=== PATIENT | male | born 1980 ===

== ENCOUNTER 2020-11-05 08:29 | Outpatient (REF) | payer BC, SELFPAY ==
--- NOTE | 2020-11-05 08:59 | XR_ITS ---
EXAMINATION: XR BILATERAL HAND, BILATERAL SHOULDER, CERVICAL SPINE, AND ABDOMEN CLINICAL INFORMATION: Pain. COMPARISON: None. TECHNIQUE: 3 views each hand, 4 views each shoulder, 2 views cervical spine and 2 views abdomen. FINDINGS: Right Hand: There is no visible acute fracture, dislocation or subluxation. The joint space is maintained. The soft tissues are normal. Left Hand: There is no visible acute fracture, dislocation or subluxation. The joint spaces are maintained. The soft tissues are normal. Left Shoulder: There is no visible acute fracture, dislocation or subluxation seen. 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 Right Shoulder: No visible acute fracture, dislocation or subluxation seen. There is mild deformity of the acromion at the AC joint, 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. Abdomen: There is scattered stool seen throughout the right colon. The bowel gas pattern is nonspecific. There is no organomegaly. No radiopaque calculi seen. There are phleboliths in the right pelvis. No gross bony abnormality. Cervical Spine: There is mild straightening of cervical lordosis. The vertebral heights and alignment are normal. There is mild loss of C4-C5, C5-C6, C6-C7 disc heights with ventral spondylosis. No lytic or sclerotic process seen. The prevertebral soft tissues are normal. XR/XR hand RT min 3V IMPRESSION: Unremarkable bilateral hand exam. Mild deformity of bilateral acromion processes at the AC joints, likely normal variation. Otherwise, both shoulders are unremarkable. Unremarkable abdomen with mild constipation. Straightening of cervical lordosis, probably from spasm. There are degenerative disc changes C4-C5 through C6-C7 disc levels with moderate ventral spondylosis. No lytic or sclerotic process seen.
--- NOTE | 2020-11-05 08:59 | XR_ITS ---
EXAMINATION: XR BILATERAL HAND, BILATERAL SHOULDER, CERVICAL SPINE, AND ABDOMEN CLINICAL INFORMATION: Pain. COMPARISON: None. TECHNIQUE: 3 views each hand, 4 views each shoulder, 2 views cervical spine and 2 views abdomen. FINDINGS: Right Hand: There is no visible acute fracture, dislocation or subluxation. The joint space is maintained. The soft tissues are normal. Left Hand: There is no visible acute fracture, dislocation or subluxation. The joint spaces are maintained. The soft tissues are normal. Left Shoulder: There is no visible acute fracture, dislocation or subluxation seen. 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 Right Shoulder: No visible acute fracture, dislocation or subluxation seen. There is mild deformity of the acromion at the AC joint, 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. Abdomen: There is scattered stool seen throughout the right colon. The bowel gas pattern is nonspecific. There is no organomegaly. No radiopaque calculi seen. There are phleboliths in the right pelvis. No gross bony abnormality. Cervical Spine: There is mild straightening of cervical lordosis. The vertebral heights and alignment are normal. There is mild loss of C4-C5, C5-C6, C6-C7 disc heights with ventral spondylosis. No lytic or sclerotic process seen. The prevertebral soft tissues are normal. XR/XR shoulder RT min 2V IMPRESSION: Unremarkable bilateral hand exam. Mild deformity of bilateral acromion processes at the AC joints, likely normal variation. Otherwise, both shoulders are unremarkable. Unremarkable abdomen with mild constipation. Straightening of cervical lordosis, probably from spasm. There are degenerative disc changes C4-C5 through C6-C7 disc levels with moderate ventral spondylosis. No lytic or sclerotic process seen.
--- NOTE | 2020-11-05 08:59 | XR_ITS ---
EXAMINATION: XR BILATERAL HAND, BILATERAL SHOULDER, CERVICAL SPINE, AND ABDOMEN CLINICAL INFORMATION: Pain. COMPARISON: None. TECHNIQUE: 3 views each hand, 4 views each shoulder, 2 views cervical spine and 2 views abdomen. FINDINGS: Right Hand: There is no visible acute fracture, dislocation or subluxation. The joint space is maintained. The soft tissues are normal. Left Hand: There is no visible acute fracture, dislocation or subluxation. The joint spaces are maintained. The soft tissues are normal. Left Shoulder: There is no visible acute fracture, dislocation or subluxation seen. 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 Right Shoulder: No visible acute fracture, dislocation or subluxation seen. There is mild deformity of the acromion at the AC joint, 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. Abdomen: There is scattered stool seen throughout the right colon. The bowel gas pattern is nonspecific. There is no organomegaly. No radiopaque calculi seen. There are phleboliths in the right pelvis. No gross bony abnormality. Cervical Spine: There is mild straightening of cervical lordosis. The vertebral heights and alignment are normal. There is mild loss of C4-C5, C5-C6, C6-C7 disc heights with ventral spondylosis. No lytic or sclerotic process seen. The prevertebral soft tissues are normal. XR/XR abdomen w decubitus IMPRESSION: Unremarkable bilateral hand exam. Mild deformity of bilateral acromion processes at the AC joints, likely normal variation. Otherwise, both shoulders are unremarkable. Unremarkable abdomen with mild constipation. Straightening of cervical lordosis, probably from spasm. There are degenerative disc changes C4-C5 through C6-C7 disc levels with moderate ventral spondylosis. No lytic or sclerotic process seen.
[2020-11-05 09:02] LABS: MANUAL DIFF FLAG NO
[2020-11-05 09:06] LABS: Basophils Percent Auto 0.4 % (0-2); Eosinophils Percent Auto 0.5 % (0-4); Hematocrit 45.1 % (42-52); Hemoglobin 14.9 g/dl (14.0-18.0); Imm Gran Abs Auto 0.02 X10*3/uL (0.00-0.03); Imm Gran Pct Auto 0.3 % (0.0-0.4); Lymphocytes Absolute Auto 1.8 X10*3/uL (1.2-4.9); Lymphocytes Percent Auto 25.1 % (20-40); Mean Corpuscular Hemoglobin 29.1 pg (27.0-33.0); Mean Corpuscular Volume 88.1 fL (80-98); Mean Platelet Volume 9.4 fL (9.4-12.4); Monocytes Absolute Auto 0.7 X10*3/uL (0.1-1.2); Neutrophils Absolute Auto 4.6 X10*3/uL (2.0-8.3); Neutrophils Percent Auto 63.7 % (45-73); Platelet Count 214 X10*3/uL (160-400); Red Blood Count 5.12 X10*6/uL (4.60-5.80); Red Cell Distribution Width 12.7 % (11.0-16.0); White Blood Count 7.3 X10*3/uL (4.8-10.8)
[2020-11-05 09:36] LABS: Glucose Urine UA NEG (NEG); Leukocyte Esterase Urine NEG (NEG); Nitrite Urine NEG (NEG); Specific Gravity - Urine >= 1.030 (1.005-1.025); Urine Blood 1+ (NEG); Urine Ketones 15 MG/DL (NEG); Urine Protein NEG (NEG-TRACE)
[2020-11-05 09:37] LABS: Appearance Urine CLEAR; Color Urine YELLOW
[2020-11-05 10:14] LABS: Erythrocyte Sedimentation Rate 1 MM/HR (0-15)
[2020-11-05 10:34] LABS: RBC Urine 0-2 /HPF (0); WBC Urine 0 /HPF (0-4)
[2020-11-05 11:00] LABS: Alanine Aminotransferase 20 U/L (0-40); Albumin Level 4.8 g/dL (3.5-5.0); Alkaline Phosphatase 76 U/L (39-117); Anion Gap 14 (12-20); Aspartate Amino Transferase 22 U/L (5-37); Bilirubin Total 1.3 mg/dL (0.0-1.0); Blood Urea Nitrogen 14 mg/dL (9-16); C Reactive Protein 0.06 mg/dL (< or = 0.50); Calcium 9.5 mg/dL (8.4-10.2); Carbon Dioxide 28 mmol/L (22-29); Chloride 104 mmol/L (96-108); Cholesterol 173 mg/dL; Estimated Glomerular Filt Rate > 60; Glucose Fasting 89 mg/dL (60-99); HDL Cholesterol 61 mg/dL; LDL Cholesterol Calculated 102 mg/dl; Potassium 4.8 mmol/l (3.3-5.1); Rheumatoid Factor < 15.0 IU/mL (<15.0); Sodium 141 mmol/L (135-145); Total Protein 7.6 g/dL (6.5-8.0); Triglycerides 50 mg/dL
[2020-11-05 11:21] LABS: TSH reflex Free T4 0.75 mIU/mL (0.32-4.0)
== END 2020-11-05 08:30 | disposition home or self-care (01) ==
LOC: HO.LAB 08:29
PROVIDERS: PCP Internal Medicine; Visit Provider Internal Medicine
DX: Z00.00 Encounter for general adult medical examination without abnormal findings (principal); I10 Essential (primary) hypertension; R10.9 Unspecified abdominal pain; R14.0 Abdominal distension (gaseous); E66.3 Overweight; M79.7 Fibromyalgia; E78.00 Pure hypercholesterolemia, unspecified; M79.642 Pain in left hand; M79.641 Pain in right hand; M25.512 Pain in left shoulder; M25.511 Pain in right shoulder; M54.2 Cervicalgia
CPT/HCPCS: 36415; 72040; 73030; 73130; 74021; 80053; 80061; 81001; 81003; 84443; 85025; 85652; 86140; 86431

== ENCOUNTER 2021-08-08 09:33 | Outpatient (REF) | payer BC, SELFPAY ==
[2021-08-08 10:03] LABS: Basophils Percent Auto 0.3 % (0-2); Eosinophils Percent Auto 0.4 % (0-4); Hematocrit 41.6 % (42-52); Hemoglobin 13.9 g/dl (14.0-18.0); Imm Gran Abs Auto 0.02 X10*3/uL (0.00-0.03); Imm Gran Pct Auto 0.3 % (0.0-0.4); Lymphocytes Absolute Auto 1.6 X10*3/uL (1.2-4.9); Lymphocytes Percent Auto 21.5 % (20-40); MANUAL DIFF FLAG NO; Mean Corpuscular HGB Conc 33.4 g/dl (31.0-36.0); Mean Corpuscular Volume 89.7 fL (80-98); Mean Platelet Volume 9.4 fL (9.4-12.4); Monocytes Absolute Auto 0.7 X10*3/uL (0.1-1.2); Monocytes Percent Auto 8.8 % (2-11); Neutrophils Absolute Auto 5.2 X10*3/uL (2.0-8.3); Neutrophils Percent Auto 68.7 % (45-73); Platelet Count 194 X10*3/uL (160-400); Red Blood Count 4.64 X10*6/uL (4.60-5.80); Red Cell Distribution Width 13.9 % (11.0-16.0); White Blood Count 7.6 X10*3/uL (4.8-10.8)
[2021-08-08 11:04] LABS: Alanine Aminotransferase 16 U/L (0-40); Albumin Level 4.3 g/dL (3.5-5.0); Alkaline Phosphatase 58 U/L (39-117); Anion Gap 10 (12-20); Aspartate Amino Transferase 19 U/L (5-37); Bilirubin Total 0.4 mg/dL (0.0-1.0); Blood Urea Nitrogen 21 mg/dL (9-16); Calcium 9.7 mg/dL (8.4-10.2); Carbon Dioxide 26 mmol/L (22-29); Chloride 106 mmol/L (96-108); Estimated Glomerular Filt Rate > 60; Glucose Random 83 mg/dL (60-115); Potassium 4.2 mmol/L (3.3-5.1); Sodium 138 mmol/L (135-145); Total Protein 6.8 g/dL (6.5-8.0)
== END 2021-08-08 09:34 | disposition home or self-care (01) ==
LOC: HO.LAB 09:33
PROVIDERS: PCP Internal Medicine; Visit Provider Nurse Practitioner Family
DX: K92.1 Melena (principal)
CPT/HCPCS: 36415; 80053; 85025

== ENCOUNTER 2021-11-08 09:50 | Outpatient (REF) | payer BC, SELFPAY ==
--- NOTE | ~2021-11-08 | XR_ITS ---
EXAMINATION: XR LUMBOSACRAL SPINE CLINICAL INFORMATION: Chronic low back pain COMPARISON: [facility] 11/05/2020 and lumbar spine x-rays 10/27/2013 TECHNIQUE: Three views of the lumbosacral spine. FINDINGS: Similar appearance of 4 nonrib-bearing lumbar style vertebral bodies with the lower most right rib being diminutive. There is normal alignment of the lumbar spine. Lumbar vertebral body heights are maintained. There is moderate narrowing of the lower most lumbar disc space height. Minimal degenerative changes of the posterior elements of the lower lumbar spine. Sacroiliac joints appear symmetric. Punctate pelvic calcifications are likely vascular in nature. XR/XR lumbar spine 2-3V IMPRESSION: -Mild to moderate degenerative changes of the lower lumbar spine without compression deformity. -If intervention is planned, complete imaging of the spine is recommended for accurate vertebral body numbering.
[2021-11-08 10:16] LABS: MANUAL DIFF FLAG NO
[2021-11-08 10:30] LABS: Basophils Percent Auto 0.1 % (0-2); Eosinophils Percent Auto 0.3 % (0-4); Hematocrit 43.3 % (42.0-52.0); Hemoglobin 14.3 g/dl (14.0-18.0); Imm Gran Abs Auto 0.01 X10*3/uL (0.00-0.03); Imm Gran Pct Auto 0.1 % (0.0-0.4); Lymphocytes Absolute Auto 1.7 X10*3/uL (1.2-4.9); Lymphocytes Percent Auto 24.8 % (20-40); Mean Corpuscular Hemoglobin 29.7 pg (27.0-33.0); Mean Platelet Volume 9.4 fL (9.4-12.4); Monocytes Absolute Auto 0.6 X10*3/uL (0.1-1.2); Neutrophils Absolute Auto 4.6 x10*3/uL (2.0-8.3); Neutrophils Percent Auto 65.7 % (45-73); Platelet Count 216 X10*3/uL (160-400); Red Blood Count 4.81 X10*6/uL (4.60-5.80); Red Cell Distribution Width 13.2 % (11.0-16.0)
[2021-11-08 10:59] LABS: Appearance Urine CLEAR; Color Urine YELLOW; Glucose Urine UA NEG (NEG); Leukocyte Esterase Urine NEG (NEG); Nitrite Urine NEG (NEG); UACC Culture Trigger NO; Urine Blood 1+ (NEG); Urine Ketones NEG (NEG); Urine Protein NEG (NEG-TRACE)
[2021-11-08 11:07] LABS: Erythrocyte Sedimentation Rate 1 MM/HR (0-15)
[2021-11-08 11:16] LABS: WBC Urine 0 /HPF (0-4)
[2021-11-08 11:17] LABS: Amorphous Sediment Urine TRACE /LPF; RBC Urine 0 /HPF (0)
[2021-11-08 11:46] LABS: Alanine Aminotransferase 37 U/L (0-40); Albumin Level 4.5 g/dL (3.5-5.0); Alkaline Phosphatase 65 U/L (39-117); Anion Gap 12 (12-20); Aspartate Amino Transferase 28 U/L (5-37); Bilirubin Total 0.5 mg/dL (0.0-1.0); Blood Urea Nitrogen 22 mg/dL (9-16); C Reactive Protein 0.03 mg/dL (< or = 0.50); Calcium 9.7 mg/dL (8.4-10.2); Carbon Dioxide 25 mmol/L (22-29); Chloride 105 mmol/L (96-108); Cholesterol 196 mg/dL; Estimated Glomerular Filt Rate > 60; Glucose Fasting 84 mg/dL (60-99); HDL Cholesterol 63 mg/dL; LDL Cholesterol Calculated 122 mg/dl; Potassium 4.1 mmol/L (3.3-5.1); Sodium 138 mmol/L (135-145); Total Protein 7.5 g/dL (6.5-8.0); Triglycerides 58 mg/dL
[2021-11-08 11:51] LABS: TSH reflex Free T4 0.87 uIU/mL (0.32-4.0); Vitamin D 25-OH Total 24.1 ng/mL (>30)
== END 2021-11-08 09:51 | disposition home or self-care (01) ==
LOC: HO.XRAY 09:50
PROVIDERS: PCP Internal Medicine; Visit Provider Internal Medicine
DX: Z00.00 Encounter for general adult medical examination without abnormal findings (principal); E55.9 Vitamin D deficiency, unspecified; M25.511 Pain in right shoulder; M25.512 Pain in left shoulder; M54.50 Low back pain, unspecified
CPT/HCPCS: 36415; 72100; 80053; 80061; 81001; 81003; 82306; 84443; 85025; 85652; 86140

== ENCOUNTER 2021-11-24 11:52 | Outpatient (REF) | payer BC, SELFPAY ==
[2021-11-24 13:53] LABS: Syphilis Screen Nonreactive (Nonreactive)
[2021-11-24 14:12] LABS: Prostate Specific Antigen Scr 0.32 ng/mL (<0.05-4.0)
[2021-11-24 14:45] LABS: Appearance Urine CLEAR; Color Urine YELLOW; Glucose Urine UA NEG (NEG); Leukocyte Esterase Urine NEG (NEG); Nitrite Urine NEG (NEG); Urine Blood 1+ (NEG); Urine Ketones NEG (NEG); Urine Protein NEG (NEG-TRACE)
[2021-11-24 15:02] LABS: WBC Urine 0 /HPF (0-4)
[2021-11-24 15:16] LABS: Creatinine Urine 84.25 mg/dL; Microalbumin Urine < 5.0 mg/L
[2021-11-27 04:23] LABS: HBS Num1 230.47 mIU/mL (0-7.99); HBc Num1 0.06 S/CO (0.00-0.79); HIV AB/AG Nonreactive (Nonreactive); HIV Num 1 0.13 S/CO (0.00-0.99); Hepatitis B Core Antibody Nonreactive (Nonreactive); ~Hepatitis B Surface Antibody REACTIVE (Nonreactive)
[2021-11-27 04:41] LABS: Hepatitis B Surface Antigen Negative (Negative)
[2021-11-27 05:16] LABS: HBsAGNum1 0.18 S/CO (0.00-0.99); ~HepC Num1 0.25 S/CO (0.00-0.79); ~Hepatitis C Antibody Nonreactive (Nonreactive)
[2021-11-29 03:49] LABS: Hepatitis A Antibody IgM 0.19 Index (0-0.79); ~Hepatitis A Antibody IgM Nonreactive (Nonreactive)
[2021-11-30 17:02] LABS: Treponema pallidum Ab FTA ABS Nonreactive (Nonreactive)
[2021-12-01 16:57] LABS: Chlamydia Pneumoniae IgA <1:16 titer (<1:16); Chlamydia Pneumoniae IgM <1:10 titer (<1:10); Chlamydia Psittaci IgA <1:16 titer (<1:16); Chlamydia Psittaci IgG <1:64 titer (<1:64); Chlamydia Psittaci IgM <1:10 titer (<1:10); Chlamydia Trachomatis IgA <1:16 titer (<1:16); Chlamydia Trachomatis IgG <1:64 titer (<1:64); Chlamydia Trachomatis IgM <1:10 titer (<1:10)
== END 2021-11-24 11:53 | disposition home or self-care (01) ==
LOC: HO.LAB 11:52
PROVIDERS: PCP Internal Medicine; Visit Provider Nurse Practitioner Acute Care
DX: R36.1 Hematospermia (principal); Z12.5 Encounter for screening for malignant neoplasm of prostate
CPT/HCPCS: 36415; 81001; 82043; 84153; 86631; 86632; 86704; 86706; 86709; 86780; 86803; 87340; 87389

== ENCOUNTER 2021-12-08 11:10 | Outpatient (REF) | payer BC, SELFPAY ==
--- NOTE | ~2021-12-08 | US_ITS ---
EXAMINATION: US SCROTUM CLINICAL INFORMATION: Hematospermia. COMPARISON: None TECHNIQUE: A sonogram of the scrotum was performed assessing galaviz-scale appearance and color Doppler flow. Spectral Doppler analysis of the arterial and venous flow were performed in the testes bilaterally. FINDINGS: RIGHT: Right testicle measures 5.0 x 2.6 x 3.1 cm, volume 21.1 mL. There are several small calcifications. No other focal lesion is seen. Spectral Doppler analysis of the arterial and venous flow is normal in the right testis. Right epididymal head is normal in size. There is a 3 x 4 mm epididymal head cyst. No right varicocele is seen. No right hydrocele. Right epididymal Doppler flow is normal. LEFT: Left testicle measures 4.7 x 2.4 x 2.9 cm, volume 17.1 mL. There are several small calcifications. No other focal lesion is seen. Spectral Doppler analysis of the arterial and venous flow is normal in the left testis. Left epididymal head is normal in size. There is a 3 mm epididymal head cyst. No left varicocele is seen. There is a small left hydrocele. Left epididymal Doppler flow is normal. US/US scrotum IMPRESSION: Several small bilateral testicular calcifications. This does not meet number criteria for testicular microlithiasis. The testicles are otherwise normal appearing. Small left hydrocele. Small bilateral epididymal head cysts.
--- NOTE | ~2021-12-08 | US_ITS ---
EXAMINATION: US PELVIS LIMITED (BLADDER) CLINICAL INFORMATION: Hematospermia. COMPARISON: X-ray abdomen 11/05/2020. TECHNIQUE: Real-time imaging of the bladder. FINDINGS: BLADDER: Well distended and normal. Bilateral ureteral jets are demonstrated. Prevoid bladder volume is 814 mL. Postvoid bladder volume is 36 mL. ADDITIONAL FINDINGS: The prostate gland is slightly prominent measuring 2.9 x 4.1 x 6 cm, volume 37 mL. US/US bladder IMPRESSION: Well-distended bladder. No significant post void residual. Slightly enlarged prostate gland.
== END 2021-12-08 11:11 | disposition home or self-care (01) ==
LOC: HO.HMGCX 11:10
PROVIDERS: PCP Internal Medicine; Visit Provider Nurse Practitioner Acute Care
DX: R36.1 Hematospermia (principal)
CPT/HCPCS: 76857; 76870

== ENCOUNTER 2022-06-04 14:28 | Outpatient (REF) | payer BC, SELFPAY ==
[2022-06-04 15:37] LABS: Blood Urea Nitrogen 15 mg/dL (9-16); Estimated Glomerular Filt Rate > 60
== END 2022-06-04 14:29 | disposition home or self-care (01) ==
LOC: HO.LAB 14:28
PROVIDERS: PCP Internal Medicine; Visit Provider Nurse Practitioner Family
DX: M96.1 Postlaminectomy syndrome, not elsewhere classified (principal)
CPT/HCPCS: 36415; 82565; 84520

== ENCOUNTER 2022-07-16 07:43 | Outpatient (REF) | payer BC, SELFPAY ==
--- NOTE | ~2022-07-16 | XR_ITS ---
EXAMINATION: XR LUMBOSACRAL SPINE WITH OBLIQUES CLINICAL INFORMATION: Radiculopathy. Chronic lower back pain COMPARISON: None TECHNIQUE: AP, both oblique, and lateral views of the lumbar spine. Lateral view of the lumbosacral junction. FINDINGS: There is normal lumbar lordosis. The vertebral heights and alignment is normal. There is loss of L5-S1 disc height with mild ventral spondylosis. The SI joints are symmetrical and unremarkable. The paravertebral soft tissues are normal. XR/XR lumbar spine 6V w bending IMPRESSION: Degenerative disc changes with endplate sclerosis L5-S1 disc level. No visible acute fracture, dislocation or lytic process seen.
== END 2022-07-16 07:44 | disposition home or self-care (01) ==
LOC: HO.XRAY 07:43
PROVIDERS: PCP Internal Medicine; Visit Provider Nurse Practitioner Family
DX: M54.16 Radiculopathy, lumbar region (principal); M96.1 Postlaminectomy syndrome, not elsewhere classified; M47.816 Spondylosis without myelopathy or radiculopathy, lumbar region; M25.512 Pain in left shoulder
CPT/HCPCS: 72114

== ENCOUNTER 2022-07-16 08:23 | Outpatient (REF) | payer BC, SELFPAY | END 2022-07-16 08:24 | disposition home or self-care (01) | LOC: HO.HOSX 08:23 | PROVIDERS: Visit Provider Physician Assistant | DX: Z13.89 Encounter for screening for other disorder (principal) ==

== ENCOUNTER 2022-08-06 06:25 | Outpatient (REF) | payer BC, SELFPAY ==
--- NOTE | ~2022-08-06 | XR_ITS ---
EXAMINATION: XR SHOULDER, LEFT CLINICAL INFORMATION: Pain in the left shoulder. COMPARISON: Radiograph of the left shoulder dated from 11/05/2020. TECHNIQUE: Three views of the left shoulder. FINDINGS: Again noted os acromiale. No acute fractures or malalignment. No significant soft tissue abnormality. XR/XR shoulder LT min 2V IMPRESSION: 1. Os acromiale. 2. No acute fractures or malalignment.
== END 2022-08-06 06:26 | disposition home or self-care (01) ==
LOC: HO.HOSX 06:25
PROVIDERS: Visit Provider Physician Assistant
DX: M25.512 Pain in left shoulder (principal)
CPT/HCPCS: 20610; 73030; J1040

== ENCOUNTER 2022-11-19 07:53 | Outpatient (REF) | payer BC, SELFPAY ==
[2022-11-19 08:12] LABS: MANUAL DIFF FLAG NO
[2022-11-19 08:25] LABS: Basophils Percent Auto 0.3 % (0-2); Eosinophils Percent Auto 0.5 % (0-4); Hemoglobin 14.4 g/dl (14.0-18.0); Imm Gran Abs Auto 0.06 X10*3/uL (0.00-0.03); Imm Gran Pct Auto 0.9 % (0.0-0.4); Lymphocytes Absolute Auto 1.5 X10*3/uL (1.2-4.9); Lymphocytes Percent Auto 23.3 % (20-40); Mean Corpuscular HGB Conc 32.7 g/dl (31.0-36.0); Mean Corpuscular Hemoglobin 29.5 pg (27.0-33.0); Mean Corpuscular Volume 90.2 fL (80.0-98.0); Mean Platelet Volume 9.2 fL (9.4-12.4); Monocytes Absolute Auto 0.5 X10*3/uL (0.1-1.2); Monocytes Percent Auto 7.7 % (2-11); Neutrophils Absolute Auto 4.3 x10*3/uL (2.0-8.3); Neutrophils Percent Auto 67.3 % (45-73); Platelet Count 201 X10*3/uL (160-400); Red Blood Count 4.88 X10*6/uL (4.60-5.80); Red Cell Distribution Width 13.6 % (11.0-16.0); White Blood Count 6.4 X10*3/uL (4.8-10.8)
[2022-11-19 08:55] LABS: Alanine Aminotransferase 30 U/L (0-40); Albumin Level 4.4 g/dL (3.5-5.0); Alkaline Phosphatase 74 U/L (39-117); Anion Gap 15 (12-20); Aspartate Amino Transferase 25 U/L (5-37); Bilirubin Total 0.8 mg/dL (0.0-1.0); Blood Urea Nitrogen 12 mg/dL (9-16); Calcium 9.7 mg/dL (8.4-10.2); Carbon Dioxide 25 mmol/L (22-29); Chloride 106 mmol/L (96-108); Cholesterol 185 mg/dL; Estimated Glomerular Filt Rate > 60; Glucose Fasting 96 mg/dL (60-99); HDL Cholesterol 65 mg/dL; LDL Cholesterol Calculated 108 mg/dl; Potassium 4.5 mmol/L (3.3-5.1); Sodium 141 mmol/L (135-145); Total Protein 6.9 g/dL (6.5-8.0); Triglycerides 64 mg/dL
[2022-11-19 09:16] LABS: TSH reflex Free T4 0.65 uIU/mL (0.32-4.0); Vitamin D 25-OH Total 20.4 ng/mL (>30)
[2022-11-19 09:37] LABS: Appearance Urine Clear; Color Urine Yellow; Glucose Urine UA Negative (Negative); Leukocyte Esterase Urine Negative (Negative); Nitrite Urine Negative (Negative); Specific Gravity - Urine <= 1.005 (1.005-1.025); Urine Blood Negative (Negative); Urine Ketones Negative (Negative); Urine Protein Negative (Neg-Trace)
== END 2022-11-19 07:54 | disposition home or self-care (01) ==
LOC: HO.LAB 07:53
PROVIDERS: PCP Internal Medicine; Visit Provider Internal Medicine
DX: Z00.00 Encounter for general adult medical examination without abnormal findings (principal); R30.0 Dysuria; E55.9 Vitamin D deficiency, unspecified; E78.00 Pure hypercholesterolemia, unspecified
CPT/HCPCS: 36415; 80053; 80061; 81003; 82306; 84443; 85025

== ENCOUNTER 2023-02-20 17:00 | Outpatient (RCR) | payer BC, SELFPAY ==
--- NOTE | 2023-01-21 13:58 | MHC.PT.EP ---
[facility] [place] Office [place] Office [place] Office [address] [phone] F: [phone] F: [phone] F: [phone] F: [phone] Physical Therapy Plan of Care Date of Evaluation: Date of Surgery: N/A Diagnosis: Other shoulder lesions, unspecified shoulder Assessment: Pt is a pleasant and motivated 42yo M who presents to PT with gradual onset of L shoulder pain, no clear KYLE reported. He presents to PT with current impairments in pain, decreased L shoulder ROM, decreased L shoulder strength, soft tissue restrictions, and impaired posture. He is limited functionally by lifting, reaching, overhead ADLs, cooking, and performing his gym routine. He is an excellent candidate for skilled PT in order to address current impairments in order to facilitate return to pain-free PLOF. He is recommended to be seen 2x/week for 4 weeks and will be reassessed at that time. Frequency and Duration: The patient will be seen 2x/week for 4 weeks Short Term Goals: Pt will be I with HEP to promote self management of symptoms Pt will improve L shoulder flexion and abduction by at least 10 degrees each Labels Molder Goals: Pt will achieve full ROM and strength all planes of L shoulder with minimal to no pain Pt will return to gym routine with good mechanics and minimal to no discomfort Pt will demonstrate improvements in function as evidenced by statistically significant improvement in SPADI outcome measure Treatment Plan: Modalities to reduce pain, spasms and effusion. Manual therapy to restore motion and function. Therapeutic exercise to improve strength and flexibility. Neuromuscular re-education for posture and balance. Therapeutic activities to return to functional activities of daily living. Electronically signed by: Rosa Teran, PT, DPT Please sign and return to therapist. Thank you for your referral.
--- NOTE | 2023-02-21 11:18 | MHC.PT.DC ---
[facility] [place] [facility] [address] [facility] [place] Office [address] [phone] F: [phone] F: [phone] F: [phone] F: [phone] Physical Therapy Discharge Report Diagnosis: Other shoulder lesions, unspecified shoulder Date of Surgery: N/A Date of Evaluation: 01/21/23 Date of Discharge: 02/21/23 Treatments to Date: 8 Cancellations to Date: 1 No Shows to Date: 0 Discharge Status: Achieved Goals Improved Function Independent with HEP Discharge Summary: Pt was seen for PT from 01/21/23-02/20/23. He has made excellent progress since SOC. He has met his STGs and LTGs. He improved his score on SPADI outcome measure from 43/130 on initial PT evaluation to 16/130 at D/C on 02/20/23. He was brought through a review of HEP and gym progressions at last attended session and he performed with good mechanics and understanding. He is I with HEP. He is being D/C from skilled PT at this time. Electronically signed by: Rosa Teran, PT, DPT Please sign and return to therapist. Thank you for your referral.
== END 2023-02-21 11:19 | disposition home or self-care (01) ==
LOC: HO.PT 17:00
PROVIDERS: PCP Internal Medicine; Visit Provider Physician Assistant
DX: M75.80 Other shoulder lesions, unspecified shoulder (principal)
CPT/HCPCS: 97110; 97140; 97162; 97530

== ENCOUNTER 2023-05-17 11:11 | Outpatient (AMB) | payer BC, SELFPAY ==
[2023-05-17 11:21] VITALS: BP 122/84; PULSE 64; O2SAT 98; BMI 25.9
--- NOTE | 2023-05-17 11:21 | A.OFFPC_ITS ---
Vital Signs 05/17/23 11:21 Height 5 ft 11 in Weight 186 lb BMI 25.9 BP 122/84 Blood Pressure Location Lt brachial Position Sitting Pulse 64 Pulse Source Pulse Oximeter Pulse Oximetry (%) 98 Oxygen Delivery Method Room Air Intake Visit Reasons: 6mon f/u Admissions Manager Required: No Accompanied by: Self / Same As Patient Allergies amoxicillin [Augmentin] Allergy (Unknown, Verified 05/19/23 17:36) rash clavulanic acid [Augmentin] Allergy (Unknown, Verified 05/19/23 17:36) rash Medication List - Last Reconciled 05/19/23 by Karri Herndon MD cholecalciferol (vitamin D3) 50 mcg PO DAILY 90 days Tobacco use date assessed: 05/17/23 Dental Screening Dental Screen Date: 05/17/23 Did you have a dental visit in the last 12 months?: Yes Did you have a dental problem in the last 6 months where you did not have access to dental care?: No Was dental information given to patient?: Patient has dentist HPI 6mon f/u HPI Details Patient comes in today for his follow up visit States that he has a few issues that he would like to have addressed States that he has been experiencing increased pain over both his knees lately and is currently going to physical therapy for his knee pain Adds that he still has frequent neck pain and low back pain - states that these are chronic issues Has noticed some thickening and discoloration of the toenails on his big toes lately and is wondering if these are due to toenail fungus and if they are, what can be done about them Denies any headaches or dizziness Denies any chest pains, no shortness of breath No nausea/vomiting, no abdominal pain No change in bowel habits noted Denies any urinary frequency or dysuria but states that he still has frequent urethral irritation; denies any penile discharge Would like to know how he did on his labs done after his physical examination earlier this year as well as the results of his GC and Chlamydia studies [facility] Medical History Bilateral hand pain Cervical spondylosis Neck pain Overweight (BMI 25.0-29.9) Shoulder pain, bilateral Vitamin D deficiency Surgical History Lumbar disc herniation Family History Father No problems noted. Mother Hypertension Maternal Grandmother Cancer Other Substance use disorder Social History Housing: House Alcohol intake: current Alcohol intake frequency: holidays/special occasions only Patient Tobacco Use Status: Never used Tobacco e-Cigarette/Vaping Use: Never Used Second Hand Smoke Exposure: No Substance Use Type: Marijuana service: No Current occupational status: employed Current occupation: [employer] Cognitive needs: No Hearing needs: No Vision needs: No Questionnaire PHQ-9 Over the last 2 weeks, how often have you been bothered by any of the following problems? 1. Little interest or pleasure in doing things: not at all 2. Feeling down, depressed, or hopeless: not at all 3. Trouble falling or staying asleep, or sleeping too much: not at all 4. Feeling tired or having little energy: not at all 5. Poor appetite or overeating: not at all 6. Feeling bad about yourself - or that you are a failure or have let yourself or your family down: not at all 7. Trouble concentrating on things, such as reading the newspaper or watching television: not at all 8. Moving or speaking so slowly that other people could have noticed. Or the opposite - being so fidgety or restless that you have been moving around a lot more than usual: not at all 9. Thoughts that you would be better off or of hurting yourself in some way: not at all Total score: 0 Depression Screening Interpretation: Negative 68748 - PHQ-9 Billing: Yes Source: Developed by Drs. Denis Hancock, Kath Jenkins, Maldonado Epstein and colleagues, with an educational doug from [employer]. Thrive Questionnaire Date Thrive assessed: 05/17/23 I am a: Patient What is your living situation today?: I have a steady place to live Within the past 12 months, did the food you bought not last and you didn't have the money to get more?: Never true Within the past 12 months, did you worry whether your food would run out before you got money to buy more?: Never true Do you have trouble paying for medicines?: No Do you have trouble getting transportation to medical appointments?: No Do you have trouble paying your heating and electricity bill?: No Do you have trouble taking care of your child, family member or friend?: No Do you have trouble with day-to-day activities such as bathing, preparing meals, shopping, managing finances, etc.?: No Are you currently unemployed and looking for a job?: No Are you interested in more education?: No Please select the resources that you would like help with: None Currently or been in a relationship where the following occur: no concerns repo rted AUDIT C Alcohol Use Questionnaire (AUDIT-C) 1. How often do you have a drink containing alcohol?: Monthly or less 2. How many drinks containing alcohol do you have on a typical day when you are drinking?: 1 or 2 3. How often do you have six or more drinks on one occasion?: Never Total Score: 1 Score Reviewed/Action Taken: Yes DREA-7 AMB Questionnaire DREA-7 Date DREA - 7 assessed: 05/17/23 Feeling nervous, anxious, or on edge: 0 = Not at all Not being able to stop or control worryin = Not at all Worrying too much about different things: 0 = Not at all Trouble relaxin = Not at all Being so restless that it is hard to sit still: 0 = Not at all Becoming easily annoyed or irritable: 0 = Not at all Feeling afraid as if something awful might happen: 0 = Not at all Total DREA-7 score (0-4 normal; 5-9 mild; 10-14 moderate; 15-21 severe): 0 Source: Developed by Drs. Denis Hancock, Kath Jenkins, Maldonado Epstein and colleagues, with an educational doug from [employer]. Review of Systems Const Denies chills, Denies fatigue, Denies fever(s) and Denies headache(s) ENT Denies dysphagia, Denies dizziness, Denies headache(s), Reports neck pain, Denies odynophagia and Denies sore throat Card Denies chest pain, Denies palpitations and Denies dyspnea Resp Denies cough, Denies dyspnea and Denies wheezing GI Denies abdominal pain, Denies constipation, Denies dysphagia, Denies heartburn, Denies diarrhea, Denies nausea, Denies odynophagia and Denies vomiting Denies dysuria, Denies nocturia, Denies penile discharge (but still (+) frequent irritation around the urethral area) and Denies urinary frequency Musc Reports back pain (over the lower back - chronic), Reports arthralgias (increased over both knees), Denies joint swelling, Denies muscle weakness and Reports neck pain Skin/Breast Details: (+) thickening and discoloration of the toenails on his big toes Denies rash Neuro Denies dizziness and Denies headache(s) Endo Denies fatigue and Denies palpitations Aller/Immun Denies wheezing Physical exam (Primary Care) Vital Signs: Last Vital Signs Pulse 64 05/17/23 11:21 BP 122/84 05/17/23 11:21 Pulse Ox 98 05/17/23 11:21 Oxygen Delivery Method Room Air 05/17/23 11:21 BMI result Body Mass Index 25.9 Tobacco/Smoking Status: Tobacco use Status Tobacco use date assessed 05/17/23 05/17/23 11:27 Patient Tobacco Use Status Never used Tobacco 05/17/23 11:27 e-Cigarette/Vaping Use Never Used 05/17/23 11:27 PHQ-9: PHQ-9 Score PHQ-9: Total score 0 05/19/23 17:42 Depression Screening Interpretation: Negative Thrive Assessment: Date of Thrive Assessment Date Thrive assessed 05/17/23 05/17/23 11:27 Currently or been in a relationship where the following occur: no concerns reported Const General: no acute distress and alert HENMT Ears: TM's normal bilaterally and EAC's normal Throat: Yes posterior oropharynx normal and Yes tonsils normal (no TP congestion) Neck Neck: Yes no lymphadenopathy and Yes supple Resp Auscultation: clear to auscultation bilaterally, no rales and no wheezes Cardio Rate: regular rate Rhythm: regular rhythm Heart sounds: no murmurs GI Palpation (GI): Soft to palpation and nontender Auscultation: normal bowel sounds Penis: uncircumcised Back/Spine/Pelvis Cervical Spine: Cervical spine tenderness Thoracic/Lumbar Spine: lumbar spinal tenderness Skin General skin exam: no rashes or lesions noted Extrem General: Yes no clubbing, cyanosis or edema Right lower extremity: knee Details: tenderness; no swelling Left lower extremity: knee Details: tenderness; no swelling Results Reviewed Results Reviewed: Laboratory Tests 11/19/22 11/19/22 11/19/22 08:09 08:10 08:10 WBC 6.4 Hgb 14.4 Hct 44.0 Plt Count 201 Sodium 141 Potassium 4.5 Creatinine 0.94 Estimated GFR > 60 Fasting Glucose 96 Calcium 9.7 AST 25 ALT 30 Triglycerides 64 Cholesterol 185 LDL Cholesterol, Calc 108 HDL Cholesterol 65 25-OH Vitamin D Total 20.4 TSH 0.65 Ur Specific [place] <= 1.005 Urine Protein Negative Urine Glucose (UA) Negative Urine Blood Negative Assessment and Plan Assessment & Plan (1) Shoulder pain, bilateral: Code(s): M25.511 - Pain in right shoulder; M25.512 - Pain in left shoulder Qualifiers: Chronicity: unspecified Qualified Code(s): M25.511 - Pain in right shoulder; M25.512 - Pain in left shoulder Plan: X-rays of both shoulders done in 2020 came back grossly normal except for (+) 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 Miguel in February 2014 Reinforced activity and weight-lifting restrictions to avoid aggravating his low back pain Continue Tizanidine 4 mg Q HS as needed (3) Cervical spondylosis: Code(s): M47.812 - Spondylosis without myelopathy or radiculopathy, cervical region Plan: Cervical spine x-rays done in 2020 revealed (+) multilevel cervical spondylosis Have again advised patient to continue with his neck stretching exercises regularly to help manage his neck symptoms (4) Bilateral knee pain: Code(s): M25.561 - Pain in right knee; M25.562 - Pain in left knee Qualifiers: Chronicity: unspecified Qualified Code(s): M25.561 - Pain in right knee; M25.562 - Pain in left knee Plan: Is currently going to PT for his knees - feels that therapy is helping Will send for x-rays of both knees for further evaluation (5) Urethral irritation: Code(s): N36.8 - Other specified disorders of urethra Plan: Tests for Chlamydia and gonorrhea done earlier this year came back negative Patient is uncircumcized - discussed that this is most likely the reason for his frequent urethral irritation Will refer to urology for further evaluation and management (6) Vitamin D deficiency: Code(s): E55.9 - Vitamin D deficiency, unspecified Plan: Results of his labs done earlier this year reviewed and discussed with patient Advised that his vitamin D level is low and he should start taking some supplements for this Will start him on Vitamin D3 2000 units QD (7) Onychomycosis: Code(s): B35.1 - Tinea unguium Plan: Involving the big toe Will refer to podiatry for further evaluation and management (8) Overweight (BMI 25.0-29.9): Code(s): E66.3 - Overweight Plan: Reinforced diet/exercise as tolerated/lose weight Plan To return in November 2023 for his next annual physical examination Orders: Orders XR knee LT 4V 05/17/23 M25.561 - Pain in right knee, M25.562 - Pain in left knee XR knee RT 4V 05/17/23 M25.561 - Pain in right knee, M25.562 - Pain in left knee Referrals Urology Referral N36.8 - Other specified disorders of urethra Podiatry Referral B35.1 - Tinea unguium Medications: New cholecalciferol (vitamin D3) 50 mcg PO DAILY 90 days 90 caps 3RF E55.9 - Vitamin D deficiency, unspecified Coding Level of Care Code Est Pt Level 4 (34783) Diagnoses Shoulder pain, bilateral M25.511; M25.512 Chronicity: unspecified Lumbar degenerative disc disease M51.36 Cervical spondylosis M47.812 Bilateral knee pain M25.561; M25.562 Chronicity: unspecified Urethral irritation N36.8 Vitamin D deficiency E55.9 Onychomycosis B35.1 Overweight (BMI 25.0-29.9) E66.3
== END 2023-05-17 12:13 | disposition home or self-care (01) ==
PROVIDERS: PCP Internal Medicine; Visit Provider Internal Medicine
DX: M25.511 Pain in right shoulder (principal); M25.512 Pain in left shoulder; M51.36 Other intervertebral disc degeneration, lumbar region; E55.9 Vitamin D deficiency, unspecified; M47.812 Spondylosis without myelopathy or radiculopathy, cervical region; M25.561 Pain in right knee; M25.562 Pain in left knee; N36.8 Other specified disorders of urethra; B35.1 Tinea unguium; E66.3 Overweight
CPT/HCPCS: 99214

== ENCOUNTER 2023-05-28 12:53 | Outpatient (REF) | payer BC, SELFPAY ==
--- NOTE | ~2023-05-28 | XR_ITS ---
EXAMINATION: 1. RADIOGRAPHS RIGHT KNEE 2. RADIOGRAPHS LEFT KNEE CLINICAL INFORMATION: Bilateral knee pain COMPARISON: Left knee x-rays July 27, 2015 TECHNIQUE: 4 views of each knee were obtained FINDINGS: Right knee: No fracture or dislocation. No suprapatellar joint effusion. Joint spaces are well-maintained. No appreciable degenerative changes. No focal soft tissue swelling of the anterior knee. Left knee: No fracture or dislocation. No suprapatellar joint effusion. Joint spaces are well-maintained. No appreciable degenerative changes. No focal soft tissue swelling of the anterior knee. XR/XR knee RT 4V IMPRESSION: Unremarkable radiographs of the bilateral knees.
--- NOTE | ~2023-05-28 | XR_ITS ---
EXAMINATION: 1. RADIOGRAPHS RIGHT KNEE 2. RADIOGRAPHS LEFT KNEE CLINICAL INFORMATION: Bilateral knee pain COMPARISON: Left knee x-rays July 27, 2015 TECHNIQUE: 4 views of each knee were obtained FINDINGS: Right knee: No fracture or dislocation. No suprapatellar joint effusion. Joint spaces are well-maintained. No appreciable degenerative changes. No focal soft tissue swelling of the anterior knee. Left knee: No fracture or dislocation. No suprapatellar joint effusion. Joint spaces are well-maintained. No appreciable degenerative changes. No focal soft tissue swelling of the anterior knee. XR/XR knee LT 4V IMPRESSION: Unremarkable radiographs of the bilateral knees.
== END 2023-05-28 12:54 | disposition home or self-care (01) ==
LOC: HO.XRAY 12:53
PROVIDERS: PCP Internal Medicine; Visit Provider Internal Medicine
DX: M25.561 Pain in right knee (principal); M25.562 Pain in left knee
CPT/HCPCS: 73564

== ENCOUNTER 2023-06-11 16:00 | Outpatient (RCR) | payer BC, SELFPAY ==
--- NOTE | 2023-04-25 12:29 | MHC.PT.EP ---
[facility] [place] Office [place] Office [place] Office [address] [phone] F: [phone] F: [phone] F: [phone] F: [phone] Physical Therapy Plan of Care Date of Evaluation: Date of Surgery: N/A Diagnosis: Pain in right knee Pain in left knee bilateral knee pain Assessment: Pt is a pleasant and motivated 42yo M who presents to PT with R knee pain. Pt presents to PT with current impairments in pain, decreased R knee ROM, decreased quad and glute strength, decreased balance, and impaired mechanics. He is limited functionally by squatting, bending, child's pose, prolonged standing, and prolonged walking. He is an excellent candidate for skilled PT in order to address current impairments to facilitate return to PLOF. He is recommended to be seen 2x/week for 4 weeks and will be reassessed at that time. Frequency and Duration: The patient will be seen 2x/week for 4 weeks Short Term Goals: Pt will be I with HEP to promote self management of symptoms Pt will improve R knee flexion to 130 deg [address] Goals: Pt will demonstrate ability to squat with proper mechanics with minimal to no pain Pt will demonstrate improvements in function as evidenced by statistically significant improvement in LEFI outcome measure Treatment Plan: Modalities to reduce pain, spasms and effusion. Manual therapy to restore motion and function. Therapeutic exercise to improve strength and flexibility. Neuromuscular re-education for posture and balance. Therapeutic activities to return to functional activities of daily living. Electronically signed by: Rosa Teran, PT, DPT Please sign and return to therapist. Thank you for your referral.
--- NOTE | 2023-06-20 14:21 | MHC.PT.DC ---
[facility] [place] Office [place] Office [place] Office [address] Juvencio Olivo [address] [phone] F: [phone] F: [phone] F: [phone] F: [phone] Physical Therapy Discharge Report Diagnosis: Pain in right knee Pain in left knee bilateral knee pain Date of Surgery: N/A Date of Evaluation: 04/24/23 Date of Discharge: 06/20/23 Treatments to Date: 8 Cancellations to Date: No Shows to Date: Discharge Status: Achieved Goals Improved Function Independent with HEP Discharge Summary: Pt was seen for PT from 04/24/23-06/11/23. He made excellent progress since SOC. He had minimal to no discomfort in his knees. He improved his score on LEFI outcome measure from 54/80 on initial PT evaluation to 76/80 at D/C. He is I and compliant with HEP and performs with proper form and mechanics. He is being D/C to HEP. Electronically signed by: Rosa Teran, PT, DPT Please sign and return to therapist. Thank you for your referral.
== END 2023-06-20 14:21 | disposition home or self-care (01) ==
LOC: HO.PT 16:00
PROVIDERS: PCP Internal Medicine; Visit Provider Nurse Practitioner Family
DX: M25.561 Pain in right knee (principal); M25.562 Pain in left knee
CPT/HCPCS: 97035; 97110; 97112; 97161; 97530

== ENCOUNTER 2023-07-15 10:47 | Outpatient (AMB) | payer BC, SELFPAY ==
--- NOTE | 2023-07-15 10:49 | A.OFFVIS_ITS ---
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 Intake Note: NEW Patient presents today for a Circumcision Consult: Meds- None Allergies to Antibiotic- Amoxicillin Blood Thinner- None Airline Customer Service Agent Required: No Accompanied by: Self / Same As Patient Allergies amoxicillin [Augmentin] Allergy (Unknown, Verified 07/15/23 10:53) rash clavulanic acid [Augmentin] Allergy (Unknown, Verified 07/15/23 10:53) rash Medication List - Last Reconciled 07/15/23 by Ceci Cortés MD cholecalciferol (vitamin D3) 50 mcg PO DAILY 90 days clotrimazole-betamethasone 1-0.05 % 1 appl topical BID HPI HPI Comments History of Present Illness Details Bobby is a 43-year-old male who presents today to the office to establish as a new patient for an evaluation of circumcision consult.? 07/15/2023? He reports having on and off irritation and redness of the glans penis for a few years. He states that he has not been prescribed any treatment for this problem. He has used vaseline with some relief. He states today the area is not irritated. He states his PCP referred him to discuss circumcision as a treatment option but he is not ready to have this done. Examination: Genitalia testicles are normal; non tender, no erythema noted along the glans and skin at this time In review of chart - prior imaging noted: US Pelvis- results from 11/18/2021 revealed well-distended bladder. No significant post void residual. Slightly enlarged prostate gland. Scrotal US results from 11/18/2021 revealed several small bilateral testicular calcifications. The testicles are otherwise normal appearing. Small left hydrocele. Small bilateral epididymal head cysts. Evaluation today?UA? leukocytes: negative; blood: negative. Plan: Prescribed Lotrisone cream prn. Follow-up in 6 months. [facility] Medical History Vitamin D deficiency Cervical spondylosis Overweight (BMI 25.0-29.9) Bilateral hand pain Shoulder pain, bilateral Neck pain Surgical History Lumbar disc herniation Family History Father No problems noted. Mother Hypertension Maternal Grandmother Cancer Other Substance use disorder Social History Housing: House Alcohol intake: current Alcohol intake frequency: holidays/special occasions only Patient Tobacco Use Status: Never used Tobacco e-Cigarette/Vaping Use: Never Used Second Hand Smoke Exposure: No Substance Use Type: Marijuana service: No Current occupational status: employed Current occupation: [employer] Cognitive needs: No Hearing needs: No Vision needs: No Review of Systems Const All systems reviewed & are unremarkable except as noted in HPI and below Reports no additional complaints Eyes Reports no additional complaints ENT Reports no additional complaints Card Denies dyspnea Resp Denies cough and Denies dyspnea GI Reports no additional complaints Musc Reports no additional complaints Skin/Breast Denies rash and Denies unusual bruising Neuro Reports no additional complaints Psych Reports no additional complaints Endo Reports no additional complaints Ciro/Lymph Reports no additional complaints Aller/Immun Reports no additional complaints Physical Exam Const General: healthy appearing, no acute distress and well developed Orientation/consciousness: patient oriented x3 HEENT Head: Yes normocephalic and Yes atraumatic Eyes Conjunctivae: conjunctivae normal Neck Neck: Yes normal visual inspection Chest Chest palpation & inspection: normal inspection of the chest Resp Effort & Inspection: normal respiratory effort Cardio Rate: regular rate GI Inspection: Yes normal to inspection Palpation (GI): Soft to palpation Other: no erythema noted along the glans and skin at this time Scrotum: scrotum normal Skin General skin exam: no rashes or lesions noted Neuro General: patient oriented x3 Extrem General: No pedal edema Psych Appearance: grossly normal Affect: normal affect Results AMB Urinalysis, Automated UA Leukoctes 0 Darell/uL Last Edit by FREDDY Isaac on 07/15/23 10:59 UA Nitrite Negative Last Edit by FREDDY Isaac on 07/15/23 10:59 UA Urobilinogen 0.2 mg/dL Last Edit by Tina Rene A on 07/15/23 10:5 9 UA Protein 0 mg/dL Last Edit by Tina Rene A on 07/15/23 10:59 UA pH 7.0 Last Edit by Tina Rene, A on 07/15/23 10:59 UA Blood 0 Joe/uL Last Edit by Tina Rene, A on 07/15/23 10:59 UA Specific [place] 1.005 Last Edit by Tina Rene, A on 07/15/23 10: 59 UA Ketone Negative Last Edit by Tina Rene A on 07/15/23 10:59 UA Bilirubin 0 mg/dL Last Edit by Tina Rene A on 07/15/23 10:59 UA Glucose 0 mg/dL Last Edit by Tina Rene A on 07/15/23 10:59 Results Reviewed Results Reviewed: Laboratory Last Values Urine pH (Auto) 7.0 07/15/23 10:53 Specific [place] (Auto) 1.005 07/15/23 10:53 Urine Protein (Auto) 0 mg/dL 07/15/23 10:53 Glucose (UA)(Auto) 0 mg/dL 07/15/23 10:53 Urine Ketones (Auto) Negative 07/15/23 10:53 Urine Blood (Auto) 0 Joe/uL 07/15/23 10:53 Urine Nitrite (Auto) Negative 07/15/23 10:53 Urine Bilirubin (Auto) 0 mg/dL 07/15/23 10:53 Urine Urobilinogen (Auto) 0.2 mg/dL 07/15/23 10:53 Leukocyte Esterase (Auto) 0 Darell/uL 07/15/23 10:53 Date of Service: 12/08/21 EXAMINATION:? US PELVIS LIMITED (BLADDER) CLINICAL INFORMATION: Hematospermia. COMPARISON:? X-ray abdomen 11/05/2020. FINDINGS: BLADDER: Well distended and normal. Bilateral ureteral jets are demonstrated. Prevoid bladder volume is 814 mL. Postvoid bladder volume is 36 mL.? ADDITIONAL FINDINGS: The prostate gland is slightly prominent measuring 2.9 x 4.1 x 6 cm, volume 37 mL. IMPRESSION:? Well-distended bladder. No significant post void residual. Slightly enlarged prostate gland. Date of Service: 12/08/21 EXAMINATION: US SCROTUM CLINICAL INFORMATION:? Hematospermia. COMPARISON:? None FINDINGS: RIGHT: Right testicle measures 5.0 x 2.6 x 3.1 cm, volume 21.1 mL. There are several small calcifications. No other focal lesion is seen. Spectral Doppler analysis of the arterial and venous flow is normal in the right testis.? Right epididymal head is normal in size. There is a 3 x 4 mm epididymal head cyst. No right varicocele is seen. No right hydrocele. Right epididymal Doppler flow is normal. LEFT: Left testicle measures 4.7 x 2.4 x 2.9 cm, volume 17.1 mL. There are several small calcifications. No other focal lesion is seen. Spectral Doppler analysis of the arterial and venous flow is normal in the left testis.? Left epididymal head is normal in size. There is a 3 mm epididymal head cyst. No left varicocele is seen. There is a small left hydrocele. Left epididymal Doppler flow is normal. IMPRESSION: Several small bilateral testicular calcifications. This does not meet number criteria for testicular microlithiasis. The testicles are otherwise normal appearing. Small left hydrocele. Small bilateral epididymal head cysts. Assessment & Plan Assessment & Plan (1) Redundant foreskin: Code(s): N47.8 - Other disorders of prepuce (2) Balanitis: Code(s): N48.1 - Balanitis Plan Prescribed Lotrisone cream prn. Follow-up in 6 months. Orders: Orders AMB Urinalysis Automated 07/15/23 Z13.9 - Encounter for screening, unspecified Medications: New clotrimazole-betamethasone 1-0.05 % apply bid for 7 days then prn 1 appl topical BID 45 grams 2RF use for irritation of foreskin Patient Instructions: The patient had an opportunity to ask questions regarding treatment plan. All questions were answered. Imaging, Laboratory studies and physical exam results were discussed and reviewed in detail. No major barriers to understanding were identified. The patient expressed understanding and agreement with the above treatment plan.? ? ? The patient is aware they should contact our office by phone for worsening of their current condition or the appearance of new symptoms. Compliance is encouraged with any medications and followup testing that is ordered.? ? ? It is a privilege to be allowed the opportunity to participate in the urologic care of your patient. If you have any questions or concerns regarding treatment for the above conditions please do not hesitate to contact me. The office telephone contact is [phone].? ? ? This note is constructed in part using voice recognition software. While every effort has been made to ensure accuracy grades 1 thru 5 teacher errors may have been included.? ? ? Yours sincerely,? ? ? Ceci Cortés MD? Coding Level of Care Code New Pt Level 3 (30019) Diagnoses Redundant foreskin N47.8 Balanitis N48.1
== END 2023-07-15 11:35 | disposition home or self-care (01) ==
PROVIDERS: PCP Internal Medicine; Visit Provider Urology
DX: N47.8 Other disorders of prepuce (principal); N48.1 Balanitis
CPT/HCPCS: 99203

== ENCOUNTER → 2023-07-15 10:47 | Outpatient (BNVA) | payer BC, SELFPAY | PROVIDERS: PCP Internal Medicine; Visit Provider Urology | DX: N48.1 Balanitis (principal); N47.8 Other disorders of prepuce | CPT/HCPCS: 81003 ==

== ENCOUNTER → 2023-08-01 14:50 | Outpatient (BNVA) | payer BC, SELFPAY | PROVIDERS: PCP Internal Medicine; Visit Provider Urology ==

== ENCOUNTER 2023-11-18 10:08 | Outpatient (AMB) | payer BC, SELFPAY ==
--- NOTE | 2023-11-18 10:12 | A.OFFPC_ITS ---
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 Accompanied by: Self / Same As Patient Allergies amoxicillin [Augmentin] Allergy (Unknown, Verified 11/18/23 10:27) rash clavulanic acid [Augmentin] Allergy (Unknown, Verified 11/18/23 10:27) rash Medication List - Last Reconciled 11/18/23 by Karri Herndon MD cholecalciferol (vitamin D3) 50 mcg PO DAILY 90 days clotrimazole-betamethasone 1-0.05 % 1 appl topical BID multivitamin (Multiple Vitamins tablet) 1 tab PO DAILY Tobacco use date assessed: 11/18/23 Dental Screening Dental Screen Date: 11/18/23 Did you have a dental visit in the last 12 months?: Yes Did you have a dental problem in the last 6 months where you did not have access to dental care?: No Was dental information given to patient?: Patient has dentist HPI Annual Exam HPI Details Patient comes in today for his annual physical examination States that he feels well He denies any headaches or dizziness Denies any chest pains, no SOB No nausea/vomiting, no abdominal pain No change in bowel habits noted Denies any acute urinary symptoms Still has recurrent neck pain and low back pain but states that they have been mostly manageable although his back pain wakes him up in the middle of the night at times Would like to get a refill on his Tizanidine Rx Also still has recurrent bilateral shoulder pain and discomfort and states that they are sometimes interfering/affecting his workout routine Relates that physical therapy and cortisone injections from orthopedics in the past have helped but only temporarily Reports also on and off sharp pains in his left wrist (mostly over the ulnar side) when he is lifting weights; notes that the sharp pain would sometimes radiate into the medial (ulnar) half of his hand, followed by some tingling sensation that would last for a few minutes [facility] Medical History Vitamin D deficiency Cervical spondylosis Overweight (BMI 25.0-29.9) Bilateral hand pain Shoulder pain, bilateral Neck pain Surgical History Lumbar disc herniation Family History Father No problems noted. Mother Hypertension Maternal Grandmother Cancer Other Substance use disorder Social History Housing: House Alcohol intake: current Alcohol intake frequency: holidays/special occasions only Patient Tobacco Use Status: Never used Tobacco e-Cigarette/Vaping Use: Never Used Second Hand Smoke Exposure: No Substance Use Type: Marijuana service: No Current occupational status: employed Current occupation: [employer], [employer] Cognitive needs: No Hearing needs: No Vision needs: No Questionnaire PHQ-9 Over the last 2 weeks, how often have you been bothered by any of the following problems? 1. Little interest or pleasure in doing things: not at all 2. Feeling down, depressed, or hopeless: not at all 3. Trouble falling or staying asleep, or sleeping too much: not at all 4. Feeling tired or having little energy: not at all 5. Poor appetite or overeating: not at all 6. Feeling bad about yourself - or that you are a failure or have let yourself or your family down: not at all 7. Trouble concentrating on things, such as reading the newspaper or watching television: not at all 8. Moving or speaking so slowly that other people could have noticed. Or the opposite - being so fidgety or restless that you have been moving around a lot more than usual: not at all 9. Thoughts that you would be better off or of hurting yourself in some way: not at all Total score: 0 Depression Screening Interpretation: Negative Depression Screening Done: Yes 88325 - PHQ-9 Billing: Yes Source: Developed by Drs. Denis Hancock, Kath Jenkins, Maldonado Epstein and colleagues, with an educational doug from [employer]. Thrive Questionnaire Date Thrive assessed: 11/18/23 I am a: Patient What is your living situation today?: I have a steady place to live Within the past 12 months, did the food you bought not last and you didn't have the money to get more?: Never true Within the past 12 months, did you worry whether your food would run out before you got money to buy more?: Never true Do you have trouble paying for medicines?: No Do you have trouble getting transportation to medical appointments?: No Do you have trouble paying your heating and electricity bill?: No Do you have trouble taking care of your child, family member or friend?: No Do you have trouble with day-to-day activities such as bathing, preparing meals, shopping, managing finances, etc.?: No Are you currently unemployed and looking for a job?: No Are you interested in more education?: No Please select the resources that you would like help with: None Currently or been in a relationship where the following occur: no concerns reported THRIVE Score: 0 AUDIT C Alcohol Use Questionnaire (AUDIT-C) 1. How often do you have a drink containing alcohol?: Monthly or less 2. How many drinks containing alcohol do you have on a typical day when you are drinking?: 1 or 2 3. How often do you have six or more drinks on one occasion?: Never Total Score: 1 Score Reviewed/Action Taken: Yes DREA-7 AMB Questionnaire DREA-7 Date DREA - 7 assessed: 11/18/23 Feeling nervous, anxious, or on edge: 0 = Not at all Not being able to stop or control worryin = Not at all Worrying too much about different things: 0 = Not at all Trouble relaxin = Not at all Being so restless that it is hard to sit still: 0 = Not at all Becoming easily annoyed or irritable: 0 = Not at all Feeling afraid as if something awful might happen: 0 = Not at all Total DREA-7 score (0-4 normal; 5-9 mild; 10-14 moderate; 15-21 severe): 0 Source: Developed by Drs. Denis Hancock, Kath Jenkins, Maldonado Epstein and colleagues, with an educational doug from [employer]. Review of Systems Const Denies chills, Denies fatigue, Denies fever(s), Denies headache(s), Denies malaise and Denies weakness Eyes Denies blurry vision, Denies change in vision, Denies irritation and Denies itchy eyes ENT Denies dysphagia, Denies dizziness, Denies otalgia, Denies headache(s), Denies nasal congestion, Reports neck pain (on and off), Denies odynophagia and Denies sore throat Card Denies chest pain, Denies rapid heart rate, Denies irregular heart rhythm, Denies palpitations and Denies dyspnea Resp Denies chest congestion, Denies cough, Denies dyspnea and Denies wheezing GI Denies abdominal pain, Denies bloating, Denies constipation, Denies dysphagia, Denies heartburn, Denies diarrhea, Denies nausea, Denies odynophagia and Denies vomiting Denies hematuria, Denies difficulty urinating, Denies dysuria, Denies urinary frequency and Denies urinary urgency Musc Reports back pain (over the lower back - chronic), Reports arthralgias (involving both shoulders and both knees as well as the left wrist recently), Denies joint swelling, Denies muscle weakness and Reports neck pain (on and off) Skin/Breast Denies change in pigmentation, Denies lesions, Denies rash and Denies unusual bruising Neuro Denies dizziness, Denies headache(s), Denies paresthesias and Denies weakness Endo Denies fatigue and Denies palpitations Aller/Immun Denies itchy eyes and Denies wheezing Physical exam (Primary Care) Vital Signs: Last Vital Signs Pulse 64 11/18/23 10:13 BP 110/72 11/18/23 10:13 Pulse Ox 98 11/18/23 10:13 Oxygen Delivery Method Room Air 11/18/23 10:13 BMI result Body Mass Index 27.6 Tobacco/Smoking Status: Tobacco use Status Tobacco use date assessed 11/18/23 11/18/23 10:18 Patient Tobacco Use Status Never used Tobacco 11/18/23 10:18 e-Cigarette/Vaping Use Never Used 11/18/23 10:18 PHQ-9: PHQ-9 Score PHQ-9: Total score 0 11/18/23 10:18 Depression Screening Interpretation: Negative Thrive Assessment: Date of Thrive Assessment Date Thrive assessed 11/18/23 11/18/23 10:18 Currently or been in a relationship where the following occur: no concerns reported Const General: no acute distress, alert and awake Orientation/consciousness: patient oriented x3 HENMT Head: Yes normocephalic and Yes atraumatic Ears: external ears normal, TM's normal bilaterally and EAC's normal General nose exam: No nasal discharge present Face and sinus: Yes normal facial exam and Yes sinuses nontender Teeth and gingiva: dentition normal Throat: Yes posterior oropharynx normal and Yes tonsils normal (no TP congestion) Eyes Eyelids: Yes eyelids normal Conjunctivae: conjunctivae normal Pupils: Equal, round and reactive pupils present EOM: EOMs intact bilaterally Neck Neck: Yes no lymphadenopathy and Yes supple Thyroid: Thyroid normal Resp Auscultation: clear to auscultation bilaterally, no rales and no wheezes Cardio Rate: regular rate Rhythm: regular rhythm Heart sounds: no murmurs GI Palpation (GI): Soft to palpation, nontender and No hepatosplenomegaly present Auscultation: normal bowel sounds General: Yes no CVA tenderness Back/Spine/Pelvis Back: no CVA tenderness Cervical Spine: Cervical spine tenderness Thoracic/Lumbar Spine: lumbar spinal tenderness Skin Lesions: no lesions Rashes: no rashes Neuro General: patient oriented x3, moves all extremities, no focal motor deficits and CN's II-XI intact bilaterally Cranial nerves: Yes Equal, round and reactive pupils present Cognition (Neuro): normal cognition Gait exam (Neuro): Normal gait present Extrem Other: no tenderness noted over his shoulders on exam at present; ROM grossly normal in both shoulders General: Yes no clubbing, cyanosis or edema Assessment and Plan Assessment & Plan (1) Annual physical exam: Code(s): Z00.00 - Encounter for general adult medical examination without abnormal findings Plan: Check labs (2) Lumbar degenerative disc disease: Code(s): M51.36 - Other intervertebral disc degeneration, lumbar region Plan: Lumbar spine x-rays done in July 2022 showed (+) degenerative disc changes with endplate sclerosis L5-S1 disc level but no visible acute fracture, dislocation or lytic process seen Patient has (+) Hx of L5-S1 disc herniation and underwent L5-S1 microdiscectomy by Dr. Miguel in February 2014 Reinforced activity and weight-lifting restrictions to avoid aggravating his low back pain Continue Tizanidine 4 mg Q HS as needed - Rx refilled He was also following up with pain management for his low back pain for a while but has not been to see them for the past year or so (3) Cervical spondylosis: Code(s): M47.812 - Spondylosis without myelopathy or radiculopathy, cervical region Plan: Cervical spine x-rays done in 2020 revealed (+) multilevel cervical spondylosis Have again advised patient to continue with his neck stretching exercises regularly to help manage his neck symptoms (4) Shoulder pain, bilateral: Code(s): M25.511 - Pain in right shoulder; M25.512 - Pain in left shoulder Qualifiers: Chronicity: unspecified Qualified Code(s): M25.511 - Pain in right shoulder; M25.512 - Pain in left shoulder Plan: X-rays of both shoulders done in 2020 came back grossly normal except for (+) 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, 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 Repeat left shoulder x-rays done by orthopedics back in 07/2022 revealed (+) os acromiale, with no acute fractures or malalignment States that he has been to physical therapy (at least 8 sessions) and also had cortisone injections from orthopedics sometime last year and his shoulders continue to bother him a lot Will refer him back to orthopedics for further management (5) Bilateral knee pain: Code(s): M25.561 - Pain in right knee; M25.562 - Pain in left knee Qualifiers: Chronicity: unspecified Qualified Code(s): M25.561 - Pain in right knee; M25.562 - Pain in left knee Plan: S/P physical therapy for his knees last year - felt that therapy has helped a lot X-rays of both knees done back in May 2023 came back normal (6) Left wrist pain: Code(s): M25.532 - Pain in left wrist Plan: Will send for x-rays of the left wrist for further evaluation (7) Vitamin D deficiency: Code(s): E55.9 - Vitamin D deficiency, unspecified Plan: Continue Vitamin D3 2000 units QD (8) Overweight (BMI 25.0-29.9): Code(s): E66.3 - Overweight Plan: Reinforced diet/exercise as tolerated/lose weight Plan Follow up in 6 months Orders: Orders Comprehensive [place]. Panel Fast Today E78.00 - Pure hypercholesterolemia, unspecified, Z00.00 - Encounter for general adult medical examination without abnormal findings TSH reflex Free T4 Today E78.00 - Pure hypercholesterolemia, unspecified, Z00.00 - Encounter for general adult medical examination without abnormal findings XR wrist LT min 3V Today M25.532 - Pain in left wrist Erythrocyte Sedimentation Rate Today R51.9 - Headache, unspecified Complete Blood Count Auto Diff Today D64.9 - Anemia, unspecified, Z00.00 - Encounter for general adult medical examination without abnormal findings Lipid Panel Today E78.00 - Pure hypercholesterolemia, unspecified, Z00.00 - Encounter for general adult medical examination without abnormal findings UA CC w/rflx Micro + Cult Today R30.0 - Dysuria, Z00.00 - Encounter for general adult medical examination without abnormal findings Vitamin D 25-OH Total Today E55.9 - Vitamin D deficiency, unspecified, Z00.00 - Encounter for general adult medical examination without abnormal findings Prostate Specific Antigen Scr Today Z00.00 - Encounter for general adult medical examination without abnormal findings Referrals Orthopedics Referral M25.511 - Pain in right shoulder, M25.512 - Pain in left shoulder Medications: Refilled tizanidine 4 mg PO BEDTIME 30 days PRN 30 tabs 1RF muscle spasticity M62.830 - Muscle spasm of back, M96.1 - Postlaminectomy syndrome, not elsewhere classified Coding Level of Care Code Est Pt Prev Care 40-64y(16171) Diagnoses Annual physical exam Z00.00 Lumbar degenerative disc disease M51.36 Cervical spondylosis M47.812 Bilateral shoulder pain, unspecified chronicity M25.511; M25.512 Chronicity: unspecified Pain in both knees, unspecified chronicity M25.561; M25.562 Chronicity: unspecified Left wrist pain M25.532 Vitamin D deficiency E55.9 Overweight (BMI 25.0-29.9) E66.3
[2023-11-18 10:13] VITALS: BP 110/72; PULSE 64; O2SAT 98; BMI 27.6
== END 2023-11-18 10:55 | disposition home or self-care (01) ==
PROVIDERS: PCP Internal Medicine; Visit Provider Internal Medicine
DX: Z00.00 Encounter for general adult medical examination without abnormal findings (principal); M51.36 Other intervertebral disc degeneration, lumbar region; M47.812 Spondylosis without myelopathy or radiculopathy, cervical region; M25.511 Pain in right shoulder; M25.512 Pain in left shoulder; M25.561 Pain in right knee; M25.562 Pain in left knee; M25.532 Pain in left wrist; E55.9 Vitamin D deficiency, unspecified; E66.3 Overweight
CPT/HCPCS: 99396

== ENCOUNTER 2023-11-19 15:03 | Outpatient (REF) | payer BC, SELFPAY ==
--- NOTE | ~2023-11-19 | XR_ITS ---
EXAMINATION: XR KNEE, RIGHT CLINICAL INFORMATION: Pain. COMPARISON: None TECHNIQUE: AP and lateral views of the right knee. FINDINGS: Bony alignment and mineralization are normal. The lateral, medial and patellofemoral joint space compartments are well-maintained. There is a minimal peripheral osteophyte of the superior articular margin of the patella. No fracture or dislocation is seen. There is a small joint effusion. No foreign body is seen. XR/XR knee RT 2V IMPRESSION: 1. There is minimal osteoarthritic change of the right patellofemoral compartment. 2. There is a small right knee joint effusion. EXAMINATION: XR KNEE, LEFT CLINICAL INFORMATION: Pain. COMPARISON: None TECHNIQUE: AP and lateral views of the left knee. FINDINGS: Bony alignment and mineralization are normal. The lateral, medial and patellofemoral joint space compartments are well-maintained. No fracture or dislocation is seen. There is a small left knee joint effusion. No foreign body is seen. IMPRESSION: 1. No fracture, dislocation or unusual degenerative change is seen. 2. There is a small left knee joint effusion.
--- NOTE | ~2023-11-19 | XR_ITS ---
EXAMINATION: XR KNEE, RIGHT CLINICAL INFORMATION: Pain. COMPARISON: None TECHNIQUE: AP and lateral views of the right knee. FINDINGS: Bony alignment and mineralization are normal. The lateral, medial and patellofemoral joint space compartments are well-maintained. There is a minimal peripheral osteophyte of the superior articular margin of the patella. No fracture or dislocation is seen. There is a small joint effusion. No foreign body is seen. XR/XR knee LT 2V IMPRESSION: 1. There is minimal osteoarthritic change of the right patellofemoral compartment. 2. There is a small right knee joint effusion. EXAMINATION: XR KNEE, LEFT CLINICAL INFORMATION: Pain. COMPARISON: None TECHNIQUE: AP and lateral views of the left knee. FINDINGS: Bony alignment and mineralization are normal. The lateral, medial and patellofemoral joint space compartments are well-maintained. No fracture or dislocation is seen. There is a small left knee joint effusion. No foreign body is seen. IMPRESSION: 1. No fracture, dislocation or unusual degenerative change is seen. 2. There is a small left knee joint effusion.
--- NOTE | ~2023-11-19 | XR_ITS ---
EXAMINATION: XR WRIST, LEFT CLINICAL INFORMATION: Pain. COMPARISON: Left hand radiographs dated 11/05/2020. TECHNIQUE: PA, lateral, and oblique views of the left wrist. FINDINGS: The bones and soft tissues are normal. No fracture. Alignment is anatomic with normal joint spaces. No erosions or abnormal soft tissue calcifications. XR/XR wrist LT min 3V IMPRESSION: Normal left wrist.
[2023-11-19 15:17] LABS: MANUAL DIFF FLAG NO
[2023-11-19 15:26] LABS: Basophils Percent Auto 0.2 % (0-2); Eosinophils Percent Auto 0.1 % (0-4); Hematocrit 41.7 % (42.0-52.0); Hemoglobin 14.2 g/dl (14.0-18.0); Imm Gran Abs Auto 0.03 X10*3/uL (0.00-0.03); Imm Gran Pct Auto 0.3 % (0.0-0.4); Lymphocytes Absolute Auto 1.8 X10*3/uL (1.2-4.9); Lymphocytes Percent Auto 19.9 % (20-40); Mean Corpuscular HGB Conc 34.1 g/dl (31.0-36.0); Mean Corpuscular Hemoglobin 29.9 pg (27.0-33.0); Mean Corpuscular Volume 87.8 fL (80.0-98.0); Mean Platelet Volume 9.2 fL (9.4-12.4); Monocytes Absolute Auto 0.7 X10*3/uL (0.1-1.2); Monocytes Percent Auto 7.3 % (2-11); Neutrophils Absolute Auto 6.6 x10*3/uL (2.0-8.3); Neutrophils Percent Auto 72.2 % (45-73); Platelet Count 217 X10*3/uL (160-400); Red Blood Count 4.75 X10*6/uL (4.60-5.80); Red Cell Distribution Width 13.2 % (11.0-16.0); White Blood Count 9.2 X10*3/uL (4.8-10.8)
[2023-11-19 15:59] LABS: Erythrocyte Sedimentation Rate 2 MM/HR (0-15)
[2023-11-19 16:08] LABS: Alanine Aminotransferase 36 U/L (0-40); Albumin Level 4.3 g/dL (3.5-5.0); Alkaline Phosphatase 73 U/L (39-117); Anion Gap 15 (12-20); Aspartate Amino Transferase 37 U/L (5-37); Bilirubin Total 0.2 mg/dL (0.0-1.0); Blood Urea Nitrogen 21 mg/dL (9-16); Calcium 9.4 mg/dL (8.4-10.2); Carbon Dioxide 25 mmol/L (22-29); Chloride 105 mmol/L (96-108); Cholesterol 183 mg/dL (<200); Estimated Glomerular Filt Rate > 60; Glucose Fasting 103 mg/dL (60-99); HDL Cholesterol 65 mg/dL (>40); LDL Cholesterol Calculated 103 mg/dL (<100); Sodium 141 mmol/L (135-145); Triglycerides 77 mg/dL (<150)
[2023-11-19 16:18] LABS: Prostate Specific Antigen Scr 0.27 ng/mL (<0.05-4.0)
[2023-11-19 16:24] LABS: TSH reflex Free T4 1.02 uIU/mL (0.32-4.0); Vitamin D 25-OH Total 32.2 ng/mL (>30)
[2023-11-19 17:03] LABS: Appearance Urine Clear; Color Urine Yellow; Glucose Urine UA Negative (Negative); Leukocyte Esterase Urine Negative (Negative); Nitrite Urine Negative (Negative); Specific Gravity - Urine 1.015 (1.005-1.025); Urine Blood Negative (Negative); Urine Ketones Negative (Negative); Urine Protein Negative (Neg-Trace)
== END 2023-11-19 15:04 | disposition home or self-care (01) ==
LOC: HO.LAB 15:03
PROVIDERS: PCP Internal Medicine; Visit Provider Internal Medicine
DX: M25.561 Pain in right knee (principal); M25.562 Pain in left knee; M25.532 Pain in left wrist; E78.00 Pure hypercholesterolemia, unspecified; R51.9 Headache, unspecified; R30.0 Dysuria; D64.9 Anemia, unspecified; E55.9 Vitamin D deficiency, unspecified; Z12.5 Encounter for screening for malignant neoplasm of prostate; Z00.00 Encounter for general adult medical examination without abnormal findings
CPT/HCPCS: 36415; 73110; 73560; 80053; 80061; 81003; 82306; 84153; 84443; 85025; 85652

== ENCOUNTER 2023-12-30 08:20 | Outpatient (AMB) | payer BC, SELFPAY ==
--- NOTE | 2023-12-30 08:28 | MHC.OFFVIS ---
Intake Vital Signs 12/30/23 08:48 Height 5 ft 11 in Weight 198 lb BMI 27.6 Intake Visit Reasons: ov- bilateral shoulder pain Intake Note: Bobby a 42 year old right hand dominant male who presents today for an evaluation of bilateral shoulder pain, left shoulder injection on 08/06/22. Patient reports last injection provided him very little relief and he does not want to repeat injection today. He found little relief with PT. States bilateral shoulder pain with his left shoulder being the worse. He is requesting to have an MRI. Allergies amoxicillin [Augmentin] Allergy (Unknown, Verified 12/30/23 08:48) rash clavulanic acid [Augmentin] Allergy (Unknown, Verified 12/30/23 08:48) rash HPI ov- bilateral shoulder pain HPI Details 43-year-old right hand dominant male who returns to the office today for a follow-up of bilateral shoulder pain. He states he has bilateral shoulder pain which is worse on his left shoulder. His pain is aggravated with exercises at gym especially bench press. He had undergone physical therapy which provided him mild relief. He had his left shoulder injection on 08/06/22 with minimal transient relief. He would not like to have an injection today. [facility] Medical History Vitamin D deficiency Cervical spondylosis Overweight (BMI 25.0-29.9) Bilateral hand pain Shoulder pain, bilateral Neck pain Surgical History Lumbar disc herniation Family History Father No problems noted. Mother Hypertension Maternal Grandmother Cancer Other Substance use disorder Social History Housing: House Alcohol intake: current Alcohol intake frequency: holidays/special occasions only Patient Tobacco Use Status: Never used Tobacco e-Cigarette/Vaping Use: Never Used Second Hand Smoke Exposure: No Substance Use Type: Marijuana service: No Current occupational status: employed Current occupation: [employer], [employer] Cognitive needs: No Hearing needs: No Vision needs: No Review of Systems Const All systems reviewed & are unremarkable except as noted in HPI and below Physical Exam Vital Signs: BMI result Body Mass Index 27.6 Const General: cooperative and no acute distress Orientation/consciousness: patient oriented x3 Resp Effort & Inspection: normal respiratory effort and able to speak in complete sentences Cardio Peripheral pulses: Peripheral pulses 2+ throughout Neuro General: patient oriented x3 Extrem Other: Left shoulder normal to inspection. Tenderness over the bicipital groove and along the deltoid region of the shoulder. FF to 175, ER to 90, IR to S1. 5/5 RTC strength, negative ross, cross body abduction. + Obriens NVI. Results Reviewed Results Reviewed: Xrays were obtained in the office today and personally reviewed by me of bilat shoulders which show type 2 acromion on the left Assessment & Plan Assessment & Plan (1) Rotator cuff tendonitis: Code(s): M75.80 - Other shoulder lesions, unspecified shoulder Qualifiers: Laterality: left Qualified Code(s): M75.82 - Other shoulder lesions, left shoulder Plan An MRI arthrogram of the left shoulder has been ordered to further evaluate the RTC and surrounding structures. I will see him back once the scan is complete which he is content with. Orders: Orders XR shoulder LT min 2V Today M25.512 - Pain in left shoulder MR shoulder LT w con Today M25.312 - Other instability, left shoulder XR shoulder RT min 2V Today M25.511 - Pain in right shoulder Patient Instructions: Scribed for Jimmy Gilliland PA-C, by Atilio Pugh medical sonographer, on 12/30/2023 at 8:30 AM EST. IJimmy PA-C, have personally reviewed and agree with the information entered by the scribe. Coding Level of Care Code Est Pt Level 3 (18342) Diagnoses Tendinitis of left rotator cuff M75.82 Laterality: left
[2023-12-30 08:48] VITALS: BMI 27.6
== END 2023-12-30 10:02 | disposition home or self-care (01) ==
PROVIDERS: PCP Internal Medicine; Visit Provider Physician Assistant
DX: M75.82 Other shoulder lesions, left shoulder (principal)
CPT/HCPCS: 99213

== ENCOUNTER 2023-12-30 16:51 | Outpatient (REF) | payer BC, SELFPAY ==
--- NOTE | ~2023-12-30 | XR_ITS ---
EXAMINATION: XR SHOULDER, BILATERAL CLINICAL INFORMATION: Pain. COMPARISON: Radiograph left shoulder 08/06/2022. Radiograph bilateral shoulders 11/05/2020. TECHNIQUE: 4 views of the right shoulder and 3 views of the left shoulder. FINDINGS: No fracture or subluxation. Stable appearance of the acromioclavicular joints compared to 2020. Mild degenerative arthrosis. New approximately 6 mm calcific body adjacent to the greater tuberosity of the right humeral head. No significant soft tissue abnormality. XR/XR shoulder LT min 2V IMPRESSION: 1. No acute fracture or malalignment. 2. New calcific body adjacent to the greater tuberosity of the right humeral head which could be associated with calcific tendinitis. 3. Mild degenerative arthrosis.
--- NOTE | ~2023-12-30 | XR_ITS ---
EXAMINATION: XR SHOULDER, BILATERAL CLINICAL INFORMATION: Pain. COMPARISON: Radiograph left shoulder 08/06/2022. Radiograph bilateral shoulders 11/05/2020. TECHNIQUE: 4 views of the right shoulder and 3 views of the left shoulder. FINDINGS: No fracture or subluxation. Stable appearance of the acromioclavicular joints compared to 2020. Mild degenerative arthrosis. New approximately 6 mm calcific body adjacent to the greater tuberosity of the right humeral head. No significant soft tissue abnormality. XR/XR shoulder RT min 2V IMPRESSION: 1. No acute fracture or malalignment. 2. New calcific body adjacent to the greater tuberosity of the right humeral head which could be associated with calcific tendinitis. 3. Mild degenerative arthrosis.
== END 2023-12-30 16:52 | disposition home or self-care (01) ==
LOC: HO.HOSX 16:51
PROVIDERS: Visit Provider Physician Assistant
DX: M25.511 Pain in right shoulder (principal); M25.512 Pain in left shoulder
CPT/HCPCS: 73030

== ENCOUNTER 2024-01-13 10:09 | Outpatient (REF) | payer BC, SELFPAY | END 2024-01-13 10:10 | disposition home or self-care (01) | LOC: HO.LAB 10:09 | PROVIDERS: PCP Internal Medicine; Visit Provider Urology | DX: R33.9 Retention of urine, unspecified (principal) | CPT/HCPCS: 0353U; 81003; 88112 ==

== ENCOUNTER 2024-01-13 10:09 | Outpatient (AMB) | payer BC, SELFPAY ==
--- NOTE | 2024-01-13 10:17 | MHC.OFFVIS ---
Intake Intake Visit Reasons: 6m follow up Intake Note: Patient presents today for a follow up on Meds- None Allergies to Antibiotic- Amoxicillin Blood Thinner- None Sling Operator Required: No Accompanied by: Self / Same As Patient Allergies amoxicillin [Augmentin] Allergy (Unknown, Verified 01/13/24 10:25) rash clavulanic acid [Augmentin] Allergy (Unknown, Verified 01/13/24 10:25) rash HPI HPI Comments History of Present Illness Details Bobby is a 43-year-old male who presents today to the office due to redundant foreskin and balanitis. The patient was seen about 6 months ago and given Lotrimin cream to use p.r.n. he states the cream caused more irritation to the foreskin. Since then he states he has been doing well occasionally he will have some irritation that resolves on its own. He wants to get checked for chlamydia gonorrhea. He denies exposure. He denies any symptoms of urethral discharge or irritative voiding symptoms. I will send urine for chlamydia and gonorrhea. Follow-up p.r.n. pending results. ? Review of chart: 07/15/2023? He reports having on and off irritation and redness of the glans penis for a few years. He states that he has not been prescribed any treatment for this problem. He has used vaseline with some relief. He states today the area is not irritated. He states his PCP referred him to discuss circumcision as a treatment option but he is not ready to have this done. Examination: Genitalia testicles are normal; non tender, no erythema noted along the glans and skin at this time In review of chart - prior imaging noted: US Pelvis- results from 11/18/2021 revealed well-distended bladder. No significant post void residual. Slightly enlarged prostate gland. Scrotal US results from 11/18/2021 revealed several small bilateral testicular calcifications. The testicles are otherwise normal appearing. Small left hydrocele. Small bilateral epididymal head cysts. Evaluation today?UA? leukocytes: negative; blood: negative. Plan-Prescribed Lotrisone cream prn. Follow-up in 6 months. 01/13/2024--urine for chlamydia gonorrhea. Follow-up p.r.n. pending results FORMERLY [facility], [facility] Medical History Vitamin D deficiency Cervical spondylosis Overweight (BMI 25.0-29.9) Bilateral hand pain Shoulder pain, bilateral Neck pain Surgical History Lumbar disc herniation Family History Father No problems noted. Mother Hypertension Maternal Grandmother Cancer Other Substance use disorder Social History Housing: House Alcohol intake: current Alcohol intake frequency: holidays/special occasions only Patient Tobacco Use Status: Never used Tobacco e-Cigarette/Vaping Use: Never Used Second Hand Smoke Exposure: No Substance Use Type: Marijuana service: No Current occupational status: employed Current occupation: [employer] Cognitive needs: No Hearing needs: No Vision needs: No Review of Systems Const All systems reviewed & are unremarkable except as noted in HPI and below Reports no additional complaints Eyes Reports no additional complaints ENT Reports no additional complaints Card Reports no additional complaints Resp Reports no additional complaints GI Reports no additional complaints Reports as per HPI Musc Reports no additional complaints Skin/Breast Reports system reviewed and no additional complaints, except as documented Neuro Reports no additional complaints Psych Reports no additional complaints Endo Reports no additional complaints Ciro/Lymph Reports no additional complaints Aller/Immun Reports no additional complaints Results AMB Urinalysis, Automated UA Leukoctes 0 Darell/uL Last Edit by Emily Alvarado CMA on 01/13/24 10:33 UA Nitrite Negative Last Edit by Emily Alvarado CMA on 01/13/24 10:33 UA Urobilinogen 0.2 mg/dL Last Edit by Emily Alvarado, WADE on 01/13/24 10:33 UA Protein 0 mg/dL Last Edit by Emily Alvarado CMA on 01/13/24 10:33 UA pH 6.5 Last Edit by Emily Alvarado, WADE on 01/13/24 10:33 UA Blood 0 Joe/uL Last Edit by Emily Alvarado, WADE on 01/13/24 10:33 UA Specific [place] 1.015 Last Edit by Emily Alvarado CMA on 01/13/24 10:33 UA Ketone Negative Last Edit by Emily Alvarado CMA on 01/13/24 10:33 UA Bilirubin 0 mg/dL Last Edit by Emily Alvarado CMA on 01/13/24 10:33 UA Glucose 0 mg/dL Last Edit by Emily Alvarado CMA on 01/13/24 10:33 Results Reviewed Results Reviewed: Laboratory Last Values Urine pH (Auto) 6.5 01/13/24 10:28 Specific [place] (Auto) 1.015 01/13/24 10:28 Urine Protein (Auto) 0 mg/dL 01/13/24 10:28 Glucose (UA)(Auto) 0 mg/dL 01/13/24 10:28 Urine Ketones (Auto) Negative 01/13/24 10:28 Urine Blood (Auto) 0 Joe/uL 01/13/24 10:28 Urine Nitrite (Auto) Negative 01/13/24 10:28 Urine Bilirubin (Auto) 0 mg/dL 01/13/24 10:28 Urine Urobilinogen (Auto) 0.2 mg/dL 01/13/24 10:28 Leukocyte Esterase (Auto) 0 Darell/uL 01/13/24 10:28 Assessment & Plan Assessment & Plan (1) Encounter for screening: Code(s): Z13.9 - Encounter for screening, unspecified Plan urine for chlamydia gonorrhea. Follow-up p.r.n. pending results Orders: Orders AMB Urinalysis Automated Today R33.9 - Retention of urine, unspecified CT NG by PCR Today Z13.9 - Encounter for screening, unspecified Patient Instructions: The patient had an opportunity to ask questions regarding treatment plan. All questions were answered. Laboratory studies reviewed in detail. No major barriers to understanding were identified. The patient expressed understanding and agreement with the above treatment plan. The patient is aware they should contact our office by phone for worsening of their current condition or the appearance of new symptoms. Compliance is encouraged with any medications and followup testing that is ordered. It is a privilege to be allowed the opportunity to participate in the urologic care of your patient. If you have any questions or concerns regarding treatment for the above conditions please do not hesitate to contact me. The office telephone contact is [phone]. This note is constructed in part using voice recognition software. While every effort has been made to ensure accuracy commissions manager errors may have been included. Yours sincerely, Ceci Cortés MD Coding Level of Care Code Est Pt Level 3 (69846) Diagnoses Encounter for screening Z13.9
== END 2024-01-13 10:49 | disposition home or self-care (01) ==
PROVIDERS: PCP Internal Medicine; Visit Provider Urology
DX: R33.9 Retention of urine, unspecified (principal)
CPT/HCPCS: 99213

== ENCOUNTER 2024-02-07 13:20 | Outpatient (REF) | payer BC, SELFPAY ==
--- NOTE | ~2024-02-07 | MR_ITS ---
EXAMINATION: MR SHOULDER WITH CONTRAST, LEFT CLINICAL INFORMATION: Left shoulder instability. COMPARISON: None available. TECHNIQUE: MRI of the shoulder was performed following the intra-articular administration of a dilute gadolinium-containing solution (arthrogram) on a high-field scanner. FINDINGS: ROTATOR CUFF: Intact. No muscle atrophy or fatty infiltration. BICEPS: Small interstitial tear at the biceps labral anchor. CORACOACROMIAL ARCH: The undersurface of the acromion is flat with no subacromial spur. Mild acromioclavicular osteoarthritis. LABRUM/CAPSULE: There is an undersurface tear of the posterior superior labrum with a tiny paralabral cyst on axial image 12, at the 11 o'clock position. The tear slightly extends into the biceps labral anchor. There is also a minimal tear at the posterior glenoid labral junction with a tiny paralabral cyst at the 8 o'clock position. GLENOHUMERAL JOINT/MARROW: No articular cartilage defect or loose body. MR/MR shoulder LT w con IMPRESSION: 1. No rotator cuff tear. 2. Undersurface partial tear of the posterior superior labrum slightly extending into the biceps labral anchor. There is also a minimal tear at the posterior glenoid labral junction with tiny paralabral cyst. 3. Mild acromioclavicular osteoarthritis.
--- NOTE | ~2024-02-07 | FL_ITS ---
LEFT SHOULDER ARTHROGRAM, FLUOROSCOPIC GUIDED INDICATIONS: Left shoulder pain. Intra-articular gadolinium injection is needed prior to MRI. PROCEDURE: Risks and benefits and possible complications were discussed with the patient and the consent form was signed. The patient was placed supine on the fluoroscopy table. The left shoulder was prepped and draped in normal sterile fashion. 1% buffered lidocaine was used for anesthesia. A 22-gauge spinal needle was used to access the shoulder joint. Intra-articular position of the needle within the shoulder joint was verified using 3 cc of Omnipaque 300. A total of 10 mL of gadolinium/saline (1:200) contrast mixture was then injected into the shoulder joint. The needle was then removed and a Band-Aid was applied to the injection site. The patient tolerated the procedure well and was sent to MRI. There were no immediate complications. Solitary spot image demonstrates no significant arthritic changes of the left shoulder joint, no narrowing of the subacromial outlet, and no evidence of full-thickness rotator cuff tear. There are no subacromial osteophytes. FL/FL arthrogram shoulder LT IMPRESSION: Successful fluoroscopic guided intra-articular instillation of dilute gadolinium into the left shoulder joint. Patient will undergo subsequent left shoulder MRI. The procedure was performed by sara Guillaume PA-C, and directly supervised by Dr. Jones.
== END 2024-02-07 13:21 | disposition home or self-care (01) ==
LOC: HO.XRAY 13:20
PROVIDERS: PCP Internal Medicine; Visit Provider Physician Assistant
DX: M25.312 Other instability, left shoulder (principal)
CPT/HCPCS: 23350; 73040; 73222

== ENCOUNTER → 2024-02-07 13:35 | Outpatient (BNV) | payer BC, SELFPAY | PROVIDERS: PCP Internal Medicine; Visit Provider Physician Assistant Surgical | DX: M25.512 Pain in left shoulder (principal) | CPT/HCPCS: 23350; 73040 ==

== ENCOUNTER 2024-03-13 11:49 | Outpatient (AMB) | payer BC, SELFPAY ==
[2024-03-13 11:57] VITALS: BMI 27.6
--- NOTE | 2024-03-13 11:57 | MHC.OFFVIS ---
Vital Signs 03/13/24 11:57 Height 5 ft 11 in Weight 198 lb BMI 27.6 Intake Visit Reasons: OV- MRi arthrogram left shoulder Review Intake Note: Bobby is a 43 year old right hand dominant male who presnets today for a follow up of his right shoulder s/p Right Shoulder Arthrogram on . He has tried and failed physical therapy, cortisone injection (08/06/24). He was last seen with Jimmy who ordered MRI with Joint Contrast. Allergies amoxicillin [Augmentin] Allergy (Unknown, Verified 03/13/24 11:58) rash clavulanic acid [Augmentin] Allergy (Unknown, Verified 03/13/24 11:58) rash HPI HPI OV- MRi arthrogram left shoulder Review: Details: Bobby is a 43 year old right hand dominant male who presnets today for a follow up of his right shoulder s/p Right Shoulder Arthrogram on . He has tried and failed physical therapy, cortisone injection (08/06/24). He was last seen with Jimmy who ordered MRI with Joint Contrast. MRI Arthrogram done on 02/07/24. He descdribes difficulty with overhead weight lifting, pull ups. Denies any injury. FORMERLY [facility] Medical History Vitamin D deficiency Cervical spondylosis Overweight (BMI 25.0-29.9) Bilateral hand pain Shoulder pain, bilateral Neck pain Surgical History Lumbar disc herniation Family History Father No problems noted. 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 No rotator cuff tear. 2. Undersurface partial tear of the posterior superior labrum slightly extending into the biceps labral anchor. There is also a minimal tear at the posterior glenoid labral junction with tiny paralabral cyst. 3. Mild acromioclavicular osteoarthritis. Assessment & Plan Assessment & Plan (1) SLAP (superior glenoid labrum lesion): Code(s): S43.439A - Superior glenoid labrum lesion of unspecified shoulder, initial encounter Category: Medical Plan: Sandra SLAP tear iwth mild symptoms. IO recommend activity modification. I reviewed rtc strengthening and activities to avoid. May f/u in 3 months if pain persists. Coding Level of Care Code Est Pt Level 4 (23086) Diagnoses SLAP (superior glenoid labrum lesion) S43.439A
== END 2024-03-13 12:37 | disposition home or self-care (01) ==
PROVIDERS: PCP Internal Medicine; Visit Provider Orthopaedic Surgery
DX: S43.432A Superior glenoid labrum lesion of left shoulder, initial encounter (principal)
CPT/HCPCS: 99213

== ENCOUNTER → 2024-03-13 11:49 | Outpatient (BNVA) | payer BC, SELFPAY | PROVIDERS: PCP Internal Medicine; Visit Provider Orthopaedic Surgery ==

== ENCOUNTER 2024-07-28 16:37 | Outpatient (AMB) | payer BC, SELFPAY ==
[2024-07-28 16:38] VITALS: BP 100/80; PULSE 70; O2SAT 98; BMI 27.4
--- NOTE | 2024-07-28 16:38 | A.OFFPC_ITS ---
Vital Signs 07/28/24 16:38 Height 5 ft 11 in Weight 196 lb 6 oz BMI 27.4 BP 100/80 Blood Pressure Location Lt brachial Position Sitting Pulse 70 Pulse Source Pulse Oximeter Pulse Oximetry (%) 98 Oxygen Delivery Method Room Air Intake Visit Reasons: lumbar DDD, bilateral shoulder pain, Vitamin Ddef. 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 Accompanied by: Self / Same As Patient Allergies amoxicillin [Augmentin] Allergy (Unknown, Verified 07/29/24 04:02) rash clavulanic acid [Augmentin] Allergy (Unknown, Verified 07/29/24 04:02) rash Medication List - Last Reconciled 07/29/24 by Karri Herndon MD cholecalciferol (vitamin D3) 50 mcg PO DAILY 90 days magnesium oxide 400 mg PO DAILY multivitamin (Multiple Vitamins tablet) 1 tab PO DAILY Tobacco use date assessed: 07/28/24 Dental Screening Dental Screen Date: 07/28/24 Did you have a dental visit in the last 12 months?: Yes Did you have a dental problem in the last 6 months where you did not have access to dental care?: No Was dental information given to patient?: Patient has dentist HPI lumbar DDD, bilateral shoulder pain, Vitamin Ddef. HPI Details Patient comes in today for his follow up vidiy States that he feels well He denies any headaches or dizziness Denies any chest pains, no SOB No nausea/vomiting, no abdominal pain No change in bowel habits noted Still has recurrent neck pain and low back pain but states that they have been mostly manageable Needs his Vitamin D Rx refilled Would also like to know how he did on his labs done back in November 2023 [facility] Medical History Vitamin D deficiency Cervical spondylosis Overweight (BMI 25.0-29.9) Bilateral hand pain Shoulder pain, bilateral Neck pain Surgical History Lumbar disc herniation Family History Father No problems noted. Mother Hypertension Maternal Grandmother Cancer Other Substance use disorder Social History Housing: House Alcohol intake: current Alcohol intake frequency: holidays/special occasions only Patient Tobacco Use Status: Never used Tobacco e-Cigarette/Vaping Use: Never Used Second Hand Smoke Exposure: No Substance Use Type: Marijuana service: No Current occupational status: employed Current occupation: [employer], [employer] Cognitive needs: No Hearing needs: No Vision needs: No Questionnaire PHQ-9 Over the last 2 weeks, how often have you been bothered by any of the following problems? 1. Little interest or pleasure in doing things: not at all 2. Feeling down, depressed, or hopeless: not at all 3. Trouble falling or staying asleep, or sleeping too much: not at all 4. Feeling tired or having little energy: not at all 5. Poor appetite or overeating: not at all 6. Feeling bad about yourself - or that you are a failure or have let yourself or your family down: not at all 7. Trouble concentrating on things, such as reading the newspaper or watching television: not at all 8. Moving or speaking so slowly that other people could have noticed. Or the opposite - being so fidgety or restless that you have been moving around a lot more than usual: not at all 9. Thoughts that you would be better off or of hurting yourself in some way: not at all Total score: 0 Depression Screening Interpretation: Negative Depression Screening Done: Yes 95724 - PHQ-9 Billing: Yes Source: Developed by Drs. Denis Hancock, Kath Jenkins, Maldonado Epstein and colleagues, with an educational doug from [employer]. Thrive Questionnaire Date Thrive assessed: 07/28/24 I am a: Patient What is your living situation today?: I have a steady place to live Within the past 12 months, did the food you bought not last and you didn't have the money to get more?: Never true Within the past 12 months, did you worry whether your food would run out before you got money to buy more?: Never true Do you have trouble paying for medicines?: No Do you have trouble getting transportation to medical appointments?: No Do you have trouble paying your heating and electricity bill?: No Do you have trouble taking care of your child, family member or friend?: No Do you have trouble with day-to-day activities such as bathing, preparing meals, shopping, managing finances, etc.?: No Are you currently unemployed and looking for a job?: No Are you interested in more education?: No Please select the resources that you would like help with: None Currently or been in a relationship where the following occur: No concerns reported THRIVE Score: 0 AUDIT C Alcohol Use Questionnaire (AUDIT-C) 1. How often do you have a drink containing alcohol?: Monthly or less 2. How many drinks containing alcohol do you have on a typical day when you are drinking?: 1 or 2 3. How often do you have six or more drinks on one occasion?: Never Total Score: 1 Score Reviewed/Action Taken: Yes DREA-7 AMB Questionnaire DREA-7 Date DREA - 7 assessed: 07/28/24 Feeling nervous, anxious, or on edge: 0 = Not at all Not being able to stop or control worryin = Not at all Worrying too much about different things: 0 = Not at all Trouble relaxin = Not at all Being so restless that it is hard to sit still: 0 = Not at all Becoming easily annoyed or irritable: 0 = Not at all Feeling afraid as if something awful might happen: 0 = Not at all Total DREA-7 score (0-4 normal; 5-9 mild; 10-14 moderate; 15-21 severe): 0 Source: Developed by Drs. Denis Hacnock, Kath Jenkins, Maldonado Epstein and colleagues, with an educational doug from [employer]. Review of Systems Const Denies chills, Denies fatigue, Denies fever(s) and Denies headache(s) ENT Denies dysphagia, Denies dizziness, Denies otalgia, Denies headache(s), Reports neck pain (on and off), Denies odynophagia and Denies sore throat Card Denies chest pain, Denies palpitations and Denies dyspnea Resp Denies cough, Denies dyspnea and Denies wheezing GI Denies abdominal pain, Denies constipation, Denies dysphagia, Denies heartburn, Denies diarrhea, Denies nausea, Denies odynophagia and Denies vomiting Reports erectile dysfunction (recently), Denies dysuria, Denies nocturia and Denies urinary frequency Musc Reports back pain (over the lower back - chronic), Reports arthralgias (involving both shoulders and both knees as well as the left wrist ) and Reports neck pain (on and off) Skin/Breast Denies rash Neuro Denies dizziness and Denies headache(s) Endo Denies fatigue and Denies palpitations Aller/Immun Denies wheezing Physical exam (Primary Care) Vital Signs: Last Vital Signs Pulse 70 07/28/24 16:38 BP 100/80 07/28/24 16:38 Pulse Ox 98 07/28/24 16:38 Oxygen Delivery Method Room Air 07/28/24 16:38 BMI result Body Mass Index 27.4 Tobacco/Smoking Status: Tobacco use Status Tobacco use date assessed 07/28/24 07/28/24 16:39 Patient Tobacco Use Status Never used Tobacco 07/28/24 16:39 e-Cigarette/Vaping Use Never Used 07/28/24 16:39 PHQ-9: PHQ-9 Score PHQ-9: Total score 0 07/28/24 17:16 Depression Screening Interpretation: Negative Thrive Assessment: Date of Thrive Assessment Date Thrive assessed 07/28/24 07/28/24 16:39 Currently or been in a relationship where the following occur: No concerns reported Const General: no acute distress and alert HENMT Ears: TM's normal bilaterally and EAC's normal Throat: Yes posterior oropharynx normal and Yes tonsils normal (no TP congestion ) Neck Neck: Yes no lymphadenopathy and Yes supple Thyroid: Thyroid normal Resp Auscultation: clear to auscultation bilaterally, no rales and no wheezes Cardio Rate: regular rate Rhythm: regular rhythm Heart sounds: no murmurs GI Palpation (GI): Soft to palpation and nontender Auscultation: normal bowel sounds General: Yes no CVA tenderness Back/Spine/Pelvis Back: no CVA tenderness Cervical Spine: Cervical spine tenderness Thoracic/Lumbar Spine: lumbar spinal tenderness Skin Rashes: no rashes Extrem Other: no tenderness noted over his shoulders on exam at present; ROM grossly normal in both shoulders General: Yes no clubbing, cyanosis or edema Results Reviewed Results Reviewed: Laboratory Tests 11/19/23 11/19/23 15:16 Unknown WBC 9.2 Hgb 14.2 Hct 41.7 L Plt Count 217 ESR 2 Sodium 141 Potassium 4.0 Creatinine 1.01 Fasting Glucose 103 H Calcium 9.4 AST 37 ALT 36 Triglycerides 77 Cholesterol 183 LDL Cholesterol, Calc 103 H HDL Cholesterol 65 PSA Screen 0.27 25-OH Vitamin D Total 32.2 TSH 1.02 Ur Specific Foley 1.015 Urine Protein Negative Urine Glucose (UA) Negative Urine Blood Negative Urine Nitrite Negative Ur Leukocyte Esterase Negative Coding Level of Care Code Est Pt Level 4 (71245) Diagnoses Degeneration of intervertebral disc of lumbar region with discogenic back pain M51.360 Disc-related pain type: discogenic back pain only Cervical spondylosis M47.812 Bilateral shoulder pain, unspecified chronicity M25.511; M25.512 Chronicity: unspecified Vitamin D deficiency E55.9 Erectile dysfunction, unspecified erectile dysfunction type N52.9 Erectile dysfunction type: unspecified Overweight (BMI 25.0-29.9) E66.3 Assessment & Plan Assessment & Plan (1) Lumbar degenerative disc disease: Code(s): M51.36 - Other intervertebral disc degeneration, lumbar region Category: Medical Qualifiers: Disc-related pain type: discogenic back pain only Qualified Code(s): M51.360 - Other intervertebral disc degeneration, lumbar region with discogenic back pain only Plan: Lumbar spine x-rays done in July 2022 showed (+) degenerative disc changes with endplate sclerosis L5-S1 disc level but no visible acute fracture, dislocation or lytic process seen Patient has (+) Hx of L5-S1 disc herniation and underwent L5-S1 microdiscectomy by Dr. Miguel in February 2014 Reinforced activity and weight-lifting restrictions to avoid aggravating his low back pain Continue Tizanidine 4 mg Q HS as needed - Rx refilled He was also following up with pain management for his low back pain for a while but has not been to see them for the past year or so (2) Cervical spondylosis: Code(s): M47.812 - Spondylosis without myelopathy or radiculopathy, cervical region Category: Medical Plan: Cervical spine x-rays done in 2020 revealed (+) multilevel cervical spondylosis Have again advised patient to continue with his neck stretching exercises regularly to help manage his neck symptoms (3) Shoulder pain, bilateral: Code(s): M25.511 - Pain in right shoulder; M25.512 - Pain in left shoulder Category: Medical Qualifiers: Chronicity: unspecified Qualified Code(s): M25.511 - Pain in right shoulder; M25.512 - Pain in left shoulder Plan: X-rays of both shoulders done in 2020 came back grossly normal except for (+) 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, 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 Repeat left shoulder x-rays done by orthopedics back in 07/2022 revealed (+) os acromiale, with no acute fractures or malalignment States that he has been to physical therapy (at least 8 sessions) and also had cortisone injections from orthopedics sometime last year and his shoulders continue to bother him a lot - has also failed cortisone injection (08/06/23). Left shoulder MRI done subsequently in January 2024 revealed no rotator cuff tear but (+) undersurface partial tear of the posterior superior labrum slightly extending into the biceps labral anchor. There is also a minimal tear at the posterior glenoid labral junction with tiny paralabral cyst and mild acromioclavicular osteoarthritis He was then advised that he likely has SLAP tear of the left shoulder and to continue with strengthening exercises of the left shoulder as well as activities to avoid doing so as not to aggravate his shoulder Follow up with orthopedics as scheduled (4) Vitamin D deficiency: Code(s): E55.9 - Vitamin D deficiency, unspecified Category: Medical Plan: Continue Vitamin D3 2000 units - Rx refilled (5) Erectile dysfunction: Code(s): N52.9 - Male erectile dysfunction, unspecified Category: Medical Qualifiers: Erectile dysfunction type: unspecified Qualified Code(s): N52.9 - Male erectile dysfunction, unspecified Plan: Patient states that he has been experiencing some symptoms of ED recently Will check his serum testosterone level with his next lab for further evaluation but advised that at his age, it is unlikely that we are dealing with hypotestosteronism and that his ED is likely a result of his anxiety (6) Overweight (BMI 25.0-29.9): Code(s): E66.3 - Overweight Category: Medical Plan: Reinforced diet/exercise as tolerated/lose weight Plan To return in December 2024 for his next annual physical examination Orders: Orders Lipid Panel 12/12/24 E78.00 - Pure hypercholesterolemia, unspecified, Z00.00 - Encounter for general adult medical examination without abnormal findings UA CC w/rflx Micro + Cult 12/12/24 R30.0 - Dysuria, Z00.00 - Encounter for general adult medical examination without abnormal findings Vitamin D 25-OH Total 12/12/24 E55.9 - Vitamin D deficiency, unspecified, Z00.00 - Encounter for general adult medical examination without abnormal findings Prostate Specific Antigen Scr 12/12/24 N52.9 - Male erectile dysfunction, unspecified, Z00.00 - Encounter for general adult medical examination without abnormal findings Complete Blood Count Auto Diff 12/12/24 D64.9 - Anemia, unspecified, Z00.00 - Encounter for general adult medical examination without abnormal findings Comprehensive [place]. Panel Fast 12/12/24 E78.00 - Pure hypercholesterolemia, unspecified, Z00.00 - Encounter for general adult medical examination without abnormal findings TSH reflex Free T4 12/12/24 E78.00 - Pure hypercholesterolemia, unspecified, Z00.00 - Encounter for general adult medical examination without abnormal findings Testosterone, Total 12/12/24 N52.9 - Male erectile dysfunction, unspecified, Z00.00 - Encounter for general adult medical examination without abnormal findings Medications: Refilled cholecalciferol (vitamin D3) 50 mcg PO DAILY 90 days 90 caps 3RF E55.9 - Vitamin D deficiency, unspecified
== END 2024-07-28 17:17 | disposition home or self-care (01) ==
PROVIDERS: PCP Internal Medicine; Visit Provider Internal Medicine
DX: M51.360 Other intervertebral disc degeneration, lumbar region with discogenic back pain only (principal); M47.812 Spondylosis without myelopathy or radiculopathy, cervical region; M25.511 Pain in right shoulder; M25.512 Pain in left shoulder; E55.9 Vitamin D deficiency, unspecified; N52.9 Male erectile dysfunction, unspecified; E66.3 Overweight

== ENCOUNTER → 2024-07-28 16:37 | Outpatient (BNVA) | payer BC, SELFPAY | PROVIDERS: PCP Internal Medicine; Visit Provider Internal Medicine ==

== ENCOUNTER 2024-12-08 15:26 | Outpatient (REF) | payer BC, SELFPAY ==
[2024-12-08 16:02] LABS: MANUAL DIFF FLAG NO
[2024-12-08 16:20] LABS: Basophils Percent Auto 0.2 % (0-2); Eosinophils Percent Auto 0.4 % (0-4); Hematocrit 43.9 % (42.0-52.0); Hemoglobin 14.6 g/dl (14.0-18.0); Imm Gran Abs Auto 0.03 X10*3/uL (0.00-0.03); Imm Gran Pct Auto 0.3 % (0.0-0.4); Lymphocytes Percent Auto 21.3 % (20-40); Mean Corpuscular HGB Conc 33.3 g/dl (31.0-36.0); Mean Corpuscular Hemoglobin 29.3 pg (27.0-33.0); Mean Corpuscular Volume 88.2 fL (80.0-98.0); Mean Platelet Volume 9.3 fL (9.4-12.4); Monocytes Absolute Auto 0.7 X10*3/uL (0.1-1.2); Monocytes Percent Auto 7.3 % (2-11); Neutrophils Absolute Auto 6.4 x10*3/uL (2.0-8.3); Neutrophils Percent Auto 70.5 % (45-73); Platelet Count 243 X10*3/uL (160-400); Red Blood Count 4.98 X10*6/uL (4.60-5.80); Red Cell Distribution Width 13.4 % (11.0-16.0); White Blood Count 9.2 X10*3/uL (4.8-10.8)
[2024-12-08 16:27] LABS: Appearance Urine Clear; Color Urine Yellow; Glucose Urine UA Negative (Negative); Leukocyte Esterase Urine Negative (Negative); Nitrite Urine Negative (Negative); PH 6.5 (5.0-9.0); Specific Gravity - Urine 1.015 (1.005-1.025); Urine Blood Negative (Negative); Urine Ketones Negative (Negative); Urine Protein Negative (Neg-Trace)
[2024-12-08 17:12] LABS: Alanine Aminotransferase 50 U/L (0-40); Albumin Level 3.9 g/dL (3.5-5.0); Alkaline Phosphatase 66 U/L (39-117); Anion Gap 10 (12-20); Aspartate Amino Transferase 35 U/L (5-37); Bilirubin Total 0.2 mg/dL (0.0-1.0); Blood Urea Nitrogen 18 mg/dL (9-16); Calcium 8.6 mg/dL (8.4-10.2); Carbon Dioxide 25 mmol/L (22-29); Chloride 109 mmol/L (96-108); Cholesterol 165 mg/dL (<200); Estimated Glomerular Filt Rate > 60; Glucose Fasting 87 mg/dL (60-99); HDL Cholesterol 53 mg/dL (>40); LDL Cholesterol Calculated 84 mg/dL (<100); Potassium 4.2 mmol/L (3.3-5.1); Sodium 140 mmol/L (135-145); Total Protein 6.6 g/dL (6.5-8.0); Triglycerides 142 mg/dL (<150)
[2024-12-08 17:13] LABS: Prostate Specific Antigen Scr 0.29 ng/mL (<0.05-4.0)
[2024-12-08 17:31] LABS: TSH reflex Free T4 0.98 uIU/mL (0.32-4.0); Vitamin D 25-OH Total 25.1 ng/mL (>30)
--- OUTSIDE RECORDS SUMMARY | 2024-12-08 19:14 | XMS_ITS ---
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 Name Role Phone Roderick [place] MDneth Primary Care Provider Florecita Guzman Unavailable [phone] Allergies Allergen (clinical drug ingredient) Drug/Non Drug Allergy documented on EMR Reaction Allergy Type Onset Date Status amoxicillin Amoxicillin rash Drug Allergy Act fanny clavulanic acid Clavulanic Acid rash Drug Allergy Active Latex Latex rash Allergy Active REASON FOR VISIT PCP - 05/2023, Fungal Nails Medications Medication SIG (Take, Route, Frequency, Duration) Notes Start Date End Date Status Vitamin D3 50 MCG (1999) TAKE 1 CAPSULE BY MOUTH DAILY FOR 90 DAYS Oral for 90 Days Active vitamin Active Social History Tobacco Use: Social History Observation Description Date Details (start date - stop date) Never Smoker NA - NA Tobacco Use/Smoking Question Answer Notes Are you a: nonsmoker Alcohol Screen Question Answer Notes Did you have a drink containing alcohol in the p ast year? No Points 0 Interpretation Negative Tobacco use other than smoking: Question Answer Notes Are you an other tobacco user? No Vital Signs Height 5 ft 11.5 in in 07/09/2023 Weight 186 lbs 07/09/2023 BMI 25.58 kg/m2 07/09/2023 Encounters Encounter Location Date Provider Diagnosis [facility] [address] [place] [address] 07/09/2023 Florecita Garcia Fungal infection of nail B35.1 Assessments Encounter Date Diagnosis (ICD Code) Assessment Notes Treatment Notes Treatment Clinical Notes Section Notes 07/09/2023 Fungal infection of nail (ICD-10 - B35.1) Plan Of Treatment Next Appt Details Follow Up: prn, Reason: Progress Notes * Bobby STRANGE JrDOB:1979 (43 yo M)Acc No.[id number]:07/09/2023 Progress Notes Patient:?Bobby Strange Provider:?Florecita Garcia DPM :1980???Age:43 Y???Sex:Male Olaf e:07/09/2023 Address: [address], [id number] Pcp:Karri Herndon MD Subjective: * Chief Complaints: * ???PCP - 05/2023Fungal Nails * HPI: ???Painful Nails:?Nature:?aching, tender, discolored, thick.?Course:?worse.?Aggrevated by:?shoegear causing difficulty standing/walking.?Treatments:?Topical Antifungal for about a month.? * ROS:?General/Constitutional:?Nausea?denies.?Vomiting?denies.?Hunger Thirst?denies.?Loss appetite?denies.?Chills?denies.?Fatigue?denies.?Fever?denies.?Night Sweats?denies.?Unexplained weight loss?denies.?Unexplained weight gain?denies.?HEENTM:?Dentures?denies.?Dizziness?denies.?Glasses/contacts?denies.?Retinopathy?de nies.?Blurred/double vision?denies.?TMJ?denies.?Discharge/drainage?denies.?Implants?denies.?Sore throat?denies.?Dental implants?denies.?Hard of hearing ?denies.?Difficulty chewing/swallowing/speaking?denies.?Nose bleeds?denies.?Sore mouth?denies.?Respiratory:?On Oxygen?denies.?Pneumonia/pleurisy?denies.?Bronchitis?denies.?Emphysema?denies.?C oughing?denies.?Cough blood?denies.?Shortness of breath?denies.?Wheezing?denies.?Cardiovascular:?Pacemaker?denies.?MVP?denies.?WPW?denies.?CHF?denies.?Heart attack?denies.?Septal defect?denies.?Rapid beat?denies.?Chest pain ?denies.?Atrial Fib.?denies.?Murmur/Palpitations?denies.?Gastrointestinal:?Hemorrhoids?denies.?Stomach/Abdominal pain?denies.?Dark blood stool?denies.?Irritable bowel ?denies.?Constipation?denies.?Diarrhea?denies.?Hematology:?Swelling?denies.?Clots?denies.?Varicose Veins?denies.?Bruising?denies.?Bleeding problem?denies.?Genitourinary:?Blood urine?denies.?Frequent/Painfu/urination/bladder control?denies.?Kidney stones?denies.?Infection (UTI)?denies.?Nephropathy?denies.?sex trans dis (STD)?denies.?Prostate?denies.?Musculoskeletal:?Hammertoes?denies.?Bunions?denies.?Back Pain?admits.?Muscle Cramps/ Resting?denies.?Muscle cramps / walking?denies.?Generalized aches and pains?denies.?Weakness?denies.?Integ.:?Mills?denies.?Scars?denies.?Corns/calluses?denies.?Ingrown nails?denies.?Painful nails?denies.?Open Sores?denies.?Rashes?denies.?Neurologic:?Difficulty sleeping?denies.?Brain disorder?denies.?Numbness?denies.?Balance trouble?denies.?Confusion?denies.?Fainting/blackouts?denies.?Tingling?denies.?Tr emors?denies.? * Medical History:? * Surgical History:?lumbar dis c herniation 2013 * Hospitalization/Major Diagno stic Procedure:?Denies Past Hospitalization * Family History:?Mother: shi magdaleno, diagnosed with Unspecified essential hypertension.?Father: alive.?Maternal Grand Mother: diagnosed with Other malignant neoplasm of unspecified site.? * Social History:?Tobacco Use:?Tobacco Use/Smoking?Are you a:?nonsmoker ?Tobacco use other than smoking?Are you an other tobacco user??No ???Drugs/Alcohol:?Drugs?Have you used drugs other than those for medical reasons in the past 12 months??Yes ?Marijuana??Yes Rarely ?Alcohol Screen?Did you have a drink containing alcohol in the past year??No ?Points?0 ?Interpretation?Negative ???Miscellaneous:?Caffeine: yes, Coffee and Tea. ?Children: yes, 2. ?Exercise: yes, walking, running, gym. ?Marital status: single. 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 * Medications:?Takingvitamin V itamin D3 50 MCG (2000 UT) Capsule TAKE 1 CAPSULE BY MOUTH DAILY FOR 90 DAYS Oral Medication List reviewed and reconciled with the patientTaking vitamin Taking Vitamin D3 50 MCG (2000 UT) Capsule TAKE 1 CAPSULE BY MOUTH DAILY FOR 90 DAYS Oral Medication List reviewed and reconciled with the patient * Allergies:?Amoxicillin: rash Clavulanic Acid: rashLatex: rashyes[Allergies Verified] Objective: * Vitals:?Ht:5 ft 11.5 in, Wt: 186, BMI:25.58, Shoe size:10.5, Ht-cm: 181.61 cm, Wt-k.37 kg. * Examination: ???Nails: ?NAILS are:?Elongated, overgrown, dystrophic, lytic, greater than 3mm thick, discolored and friable with crumbly malodorous subungual debris, with pain on palpation, TA.?General Examination: ?GENERAL APPEARANCE:?Reveals a pleasant, alert, well-nourished, well- developed, well hydrated individual, who demonstrates proper attention to hygiene/body habitus, and is in no acute distress, Pt serves as own?historian for office visit today.?ORIENTED:?person, place, and time.?Neurological: ?SENSORY:?Neurological exam reveals intact sensorium, pain sensation normal, vibration sensation intact, pinprick sensation is normal in the lower extremities, Pt denies, anesthesia, burning, paresthesia, tingling, B/L.?DEEP TENDON REFLEXES:?Achilles, 2/4, B/L.?Vascular: ?DP PULSES:?3/4, B/L.?PT PULSES:?3/4, B/L.?CAPILLARY FILL TIME:?immediate, all digits, B/L.?SKIN TEMPERTURE GRADIENT OF THE LOWER EXTERMITIES:?warm to cool, proximal to distal, B/L.?HAIR GROWTH/TEXTURE/ELASTICITY/TURGOR:?normal, B/L.?PIGMENTATION:?normal, B/L.?EDEMA:?absent, B/L.?Dermatologic: ?SKIN FINDINGS:?Skin exam reveals normal texture, elasticity, and turgor. There are no masses. The interspaces are clear.?Orthopedic: ?MUSCLE STRENGTH:?5/5 all groups in a symmetrical fashion , B/L.? Assessment: * Assessment: 1.?Fungal infection of nail - B35.1 (Primary), Acute problem, Uncomplicated (3)? Plan: * Treatment: * Procedure Codes:? * Preventive Medicine:? ??Counseling:?Discussion:?-03: Office or other outpatient visit for the evaluation and management of a new patient, which required a medically appropriate history and/or examination and LOW level of DECISION MAKING for: 1 STABLE ACUTE UNCOMPLICATED PROBLEM, 2 OR MORE MINOR PROBLEMS, OR 1 STABLE CHRONIC PROBLEM, THAT POSE(S) A LOW RISK FOR MORBIDITY/MORTALITY. The visit on the day of the encounter encompassed interpreting the data and educating the patient as to the nature of their condition, treatment options available according to their individual PMH, meds, allergies, and overall health/living conditions, as well as any potential risks or complications that may occur from a failure to adhere to, and participate in, the recommended course of therapy. The discussion included a complete verbal, and/or written explanation of the examination results, any x-rays taken, the proposed diagnosis, and outline of the treatment plan. A schedule for future care needs was also explained. The patient verbalized an understanding of the instructions at this time and agreed to be an active participant in their treatment. If the patient should think of any questions or concerns after the visit, I have encouraged the patient to call the office.?Fungal Nail Counseling:?The patient was counseled on the diagnosis, potential etiologies (including, but not limited to, environmental factors, genetic, immune deficiency), and the multiple treatment options for Onychomycosis. We discussed the risks and benefits of each option from performing no treatment, to ultraviolet light shoe treatment, to laser nail treatment, to applying topical antifungals, to taking oral antifungal medication, to surgical removal of the involved nail(s) with or without performing a matricectomy, or any combination thereof. We discussed the advantages and disadvantages of each of possible treatment and importance for adherence to all the recommended therapies for optimum success. This includes the necessity for weekly emery board self nail home debridements, and control the nail and skin environment as much as possible by only using a fresh, dry pair of shoes/socks each day, as well as keeping the skin as dry as possible through the use of sprays/powders if necessary. The patient was instructed to discard the emery board after use to prevent reinfection of the involved nail(s). We discussed the mycological and visual clinical effectiveness of topical vs oral antifungal treatments as well as each ones potential side effects and/or any patient- specific medication interactions. We discussed the reasons behind the important requirement of regular liver function testing with oral antifungal therapy for safety. Patient questions regarding use, dosage, successful outcomes, blood tests, and possible pharmaceutical interactions were reviewed and the patient verbalized that all answers were clearly understood.? * Follow Up:?prn * Images: * Sign off status: Completed true * Provider:?Florecita Gacria, DPM Date:? Generated for Nadeen tian/Nini/Rajeev on:?12/08/2024 07:13 PM EST History and Physical Notes * HPI (History of Present Illness) Category Sub-Category Detail Notes Category Not es Painful Nails Aggravated by: shoegear causing difficulty standing/walking Course: worse Nature: aching, tender, disc olored, thick Treatments: Topical Antifungal f or about a month Examination Category Sub-Category Detail Notes Category Not es Neurological SENSORY: Neurological exa m reveals intact sensorium, pain sensation normal, vibration sensation intact, pinprick sensation is normal in the lower extremities, Pt denies, anesthesia, burning, paresthesia, tingling, B/L DEEP TENDON REFLEXES: Achilles, 2/4, B/L Dermatologic SKIN FINDINGS: Skin exam reveal s normal texture, elasticity, and turgor. There are no masses. The interspaces are clear Orthopedic MUSCLE STRENGTH: 5/5 all groups in a symm etrical fashion , B/L General Examination GENERAL APPEARANCE: Reveals a pleasant, alert, well- nourished, well-developed, well hydrated individual, who demonstrates proper attention to hygiene/body habitus, and is in no acute distress, Pt serves as own historian for office visit today ORIENTED: person, place, and t ramirez Vascular DP PULSES (B): 3/4, B/L PT PULSES (B): 3/4, B/L CAPILLARY FILL TIME: immediate, all digi ts, B/L TEMPERTURE GRADIENT (C): warm to cool, p roximal to distal, B/L TROPHIC CONDITION-TEXTURE/ELASTICITY/TURGOR/HAIR GROWTH (B): normal, B/L EDEMA (C): absent, B/L PIGMENTATION: normal, B/L Nails NAILS are: Elongated, overg rown, dystrophic, lytic, greater than 3mm thick, discolored and friable with crumbly malodorous subungual debris, with pain on palpation, TA
--- OUTSIDE RECORDS SUMMARY | 2024-12-08 19:14 | XMS_ITS | Patient Health Record ---
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 No Plan Of Treatment No Information Insurance Providers Payer Name Payer Address Payer Phone Subscriber Number Group Number Insured Name Patient Relationship to Insured Coverage Start Date Coverage End Date [facility] [address] [place] [address] [phone] [id number] Bobby eMna Self - patient is the insured Medical (General) History Medical History History ICD Code Hand Pain Cervical spondylosis Neck pain overweight Shoulder pain Vitamin D deficiency Onychomycosis Lumbar disc disease covid-19 Chicken pox Surgical History Surgery Date(Month/Year) lumbar disc herniation 2013
[2024-12-15 10:38] LABS: Testosterone, Total 640 ng/dL (250-1100)
== END 2024-12-08 15:27 | disposition home or self-care (01) ==
LOC: HO.LAB 15:26
PROVIDERS: PCP Internal Medicine; Visit Provider Internal Medicine
DX: Z00.00 Encounter for general adult medical examination without abnormal findings (principal); R30.0 Dysuria; E78.00 Pure hypercholesterolemia, unspecified; N52.9 Male erectile dysfunction, unspecified; E55.9 Vitamin D deficiency, unspecified; D64.9 Anemia, unspecified; Z12.5 Encounter for screening for malignant neoplasm of prostate
CPT/HCPCS: 36415; 80053; 80061; 81003; 82306; 84153; 84403; 84443; 85025

== ENCOUNTER 2024-12-14 13:39 | Outpatient (AMB) | payer BC, SELFPAY ==
[2024-12-14 13:41] VITALS: BP 116/80; PULSE 93; O2SAT 98; BMI 28.8
--- NOTE | 2024-12-14 13:41 | MHC.PC.OV ---
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: No Accompanied by: Self / Same As Patient Allergies amoxicillin [Augmentin] Allergy (Unknown, Verified 12/14/24 14:15) rash clavulanic acid [Augmentin] Allergy (Unknown, Verified 12/14/24 14:15) rash Medication List - Last Reconciled 12/14/24 by Karri Herndon MD cholecalciferol (vitamin D3) 50 mcg PO DAILY 90 days magnesium oxide 400 mg PO DAILY multivitamin (Multiple Vitamins tablet) 1 tab PO DAILY Tobacco use date assessed: 12/14/24 Dental Screening Dental Screen Date: 12/14/24 Did you have a dental visit in the last 12 months?: Yes Did you have a dental problem in the last 6 months where you did not have access to dental care?: No Was dental information given to patient?: Patient has dentist HPI annual exam HPI Details Patient comes in today for his annual physical examination States that he feels okay He denies any headaches or dizziness Denies any chest pains, no SOB No nausea/vomiting, no abdominal pain Patient states that he has been passing out loose stools often for a while now States that he has changed his diet around over the past year and has been eating healthier overall but he continues with recurrent/frequent loose stools States that he has even tried to eliminate some things in his diet lately to try to find out what could be triggering his bowel changes but has been unsuccessful so far Notes that he does sometimes have some on and off cramping abdominal pains associated with his loose stools Denies any acute urinary symptoms He had his follow up labs done last week - to discuss his results FOR[facility]LY [facility] Medical History Vitamin D deficiency Cervical spondylosis Overweight (BMI 25.0-29.9) Bilateral hand pain Shoulder pain, bilateral Neck pain Surgical History Lumbar disc herniation Family History Father No problems noted. Mother Hypertension Maternal Grandmother Cancer Other Substance use disorder Social History Housing: House Alcohol intake: current Alcohol intake frequency: holidays/special occasions only Patient Tobacco Use Status: Never used Tobacco e-Cigarette/Vaping Use: Never Used Second Hand Smoke Exposure: No Substance Use Type: Marijuana service: No Current occupational status: employed Current occupation: [employer] Cognitive needs: No Hearing needs: No Vision needs: No Questionnaire PHQ-9 Over the last 2 weeks, how often have you been bothered by any of the following problems? 1. Little interest or pleasure in doing things: not at all 2. Feeling down, depressed, or hopeless: not at all 3. Trouble falling or staying asleep, or sleeping too much: not at all 4. Feeling tired or having little energy: more than half the days 5. Poor appetite or overeating: not at all 6. Feeling bad about yourself - or that you are a failure or have let yourself or your family down: not at all 7. Trouble concentrating on things, such as reading the newspaper or watching television: not at all 8. Moving or speaking so slowly that other people could have noticed. Or the opposite - being so fidgety or restless that you have been moving around a lot more than usual: not at all 9. Thoughts that you would be better off or of hurting yourself in some way: not at all Total score: 2 Depression Screening Interpretation: Negative Depression Screening Done: Yes 02966 - PHQ-9 Billing: Yes Source: Developed by Drs. Denis Hancock, Kaht Jenkins, Maldonado Epstein and colleagues, with an educational doug from [employer]. Thrive Questionnaire Date Thrive assessed: 12/14/24 I am a: Patient What is your living situation today?: I have a steady place to live Within the past 12 months, did the food you bought not last and you didn't have the money to get more?: Sometimes True Within the past 12 months, did you worry whether your food would run out before you got money to buy more?: Sometimes True Do you have trouble paying for medicines?: No Do you have trouble getting transportation to medical appointments?: No Do you have trouble paying your heating and electricity bill?: No Do you have trouble taking care of your child, family member or friend?: I choose not to answer this question Do you have trouble with day-to-day activities such as bathing, preparing meals, shopping, managing finances, etc.?: No Are you currently unemployed and looking for a job?: No Are you interested in more education?: No Please select the resources that you would like help with: Food Currently or been in a relationship where the following occur: No concerns reported THRIVE Score: 2 AUDIT C Alcohol Use Questionnaire (AUDIT-C) 1. How often do you have a drink containing alcohol?: Never 3. How often do you have six or more drinks on one occasion?: Never Total Score: 0 Score Reviewed/Action Taken: Yes DREA-7 AMB Questionnaire DREA-7 Date DREA - 7 assessed: 12/14/24 Feeling nervous, anxious, or on edge: 0 = Not at all Not being able to stop or control worryin = Not at all Worrying too much about different things: 0 = Not at all Trouble relaxin = Not at all Being so restless that it is hard to sit still: 0 = Not at all Becoming easily annoyed or irritable: 0 = Not at all Feeling afraid as if something awful might happen: 0 = Not at all Total DREA-7 score (0-4 normal; 5-9 mild; 10-14 moderate; 15-21 severe): 0 Source: Developed by Drs. Denis Hancock, Kath Jenkins, Maldonado Epstein and colleagues, with an educational doug from [employer]. Review of Systems Const Denies chills, Denies fatigue, Denies fever(s), Denies headache(s), Denies malaise and Denies weakness Eyes Denies blurry vision, Denies change in vision, Denies irritation and Denies itchy eyes ENT Denies dysphagia, Denies dizziness, Denies otalgia, Denies headache(s), Denies nasal congestion, Denies neck pain, Denies odynophagia and Denies sore throat Card Denies chest pain, Denies rapid heart rate, Denies irregular heart rhythm, Denies palpitations and Denies dyspnea Resp Denies chest congestion, Denies cough, Denies dyspnea and Denies wheezing GI Denies abdominal pain, Denies bloating, Denies hematochezia, Denies constipation, Denies dysphagia, Denies heartburn, Reports diarrhea, Reports loose stools (recurrent), Denies nausea, Denies odynophagia and Denies vomiting Denies hematuria, Denies difficulty urinating, Denies dysuria, Denies urinary frequency and Denies urinary urgency Musc Denies back pain, Denies arthralgias, Denies joint swelling, Denies muscle weakness and Denies neck pain Skin/Breast Denies change in pigmentation, Denies lesions, Denies rash and Denies unusual bruising Neuro Denies dizziness, Denies headache(s), Denies paresthesias and Denies weakness Endo Denies fatigue and Denies palpitations Aller/Immun Denies itchy eyes and Denies wheezing Physical exam (Primary Care) Vital Signs: Last Vital Signs Pulse 93 12/14/24 13:41 BP 116/80 12/14/24 13:41 Pulse Ox 98 12/14/24 13:41 Oxygen Delivery Method Room Air 12/14/24 13:41 BMI result Body Mass Index 28.8 Tobacco/Smoking Status: Tobacco use Status Tobacco use date assessed 12/14/24 12/14/24 13:46 Patient Tobacco Use Status Never used Tobacco 12/14/24 13:46 e-Cigarette/Vaping Use Never Used 12/14/24 13:46 PHQ-9: PHQ-9 Score PHQ-9: Total score 2 12/14/24 13:46 Depression Screening Interpretation: Negative Thrive Assessment: Date of Thrive Assessment Date Thrive assessed 12/14/24 12/14/24 13:46 Currently or been in a relationship where the following occur: No concerns reported Const General: no acute distress, alert and awake Orientation/consciousness: patient oriented x3 HENMT Head: Yes normocephalic and Yes atraumatic Ears: external ears normal, TM's normal bilaterally and EAC's normal General nose exam: No nasal discharge present Face and sinus: Yes normal facial exam and Yes sinuses nontender Teeth and gingiva: dentition normal Throat: Yes posterior oropharynx normal and Yes tonsils normal (no TP congestion) Eyes Eyelids: Yes eyelids normal Conjunctivae: conjunctivae normal Pupils: Equal, round and reactive pupils present EOM: EOMs intact bilaterally Neck Neck: Yes no lymphadenopathy and Yes supple Thyroid: Thyroid normal Resp Auscultation: clear to auscultation bilaterally, no rales and no wheezes Cardio Rate: regular rate Rhythm: regular rhythm Heart sounds: no murmurs GI Palpation (GI): Soft to palpation, nontender and No hepatosplenomegaly present Auscultation: normal bowel sounds General: Yes no CVA tenderness Back/Spine/Pelvis Back: no CVA tenderness Thoracic/Lumbar Spine: thoracic and lumbar spine normal to inspection Skin Lesions: no lesions Rashes: no rashes Neuro General: patient oriented x3, moves all extremities, no focal motor deficits and CN's II-XI intact bilaterally Cranial nerves: Yes Equal, round and reactive pupils present Cognition (Neuro): normal cognition Gait exam (Neuro): Normal gait present Extrem General: Yes no clubbing, cyanosis or edema Results Reviewed Results Reviewed: Laboratory Tests 12/08/24 12/08/24 15:55 16:01 WBC 9.2 Hgb 14.6 Hct 43.9 Plt Count 243 Sodium 140 Potassium 4.2 Creatinine 0.90 Estimated GFR > 60 Fasting Glucose 87 Calcium 8.6 D AST 35 ALT 50 H Triglycerides 142 Cholesterol 165 LDL Cholesterol, Calc 84 HDL Cholesterol 53 PSA Screen 0.29 25-OH Vitamin D Total 25.1 L TSH 0.98 Ur Specific [place] 1.015 Urine Protein Negative Urine Glucose (UA) Negative Urine Blood Negative Urine Nitrite Negative Ur Leukocyte Esterase Negative Coding Level of Care Code Est Pt Prev Care 40-64y(00040) Diagnoses Annual physical exam Z00.00 Degeneration of intervertebral disc of lumbar region with discogenic back pain M51.360 Disc-related pain type: discogenic back pain only Cervical spondylosis M47.812 Bilateral shoulder pain, unspecified chronicity M25.511; M25.512 Chronicity: unspecified Vitamin D deficiency E55.9 Diarrhea, unspecified type R19.7 Diarrhea type: unspecified type Erectile dysfunction, unspecified erectile dysfunction type N52.9 Erectile dysfunction type: unspecified Overweight (BMI 25.0-29.9) E66.3 Additional Codes PHQ-9 - 01487 - PHQ-9 Billing: Yes ([id number]) Assessment & Plan Assessment & Plan (1) Annual physical exam: Code(s): Z00.00 - Encounter for general adult medical examination without abnormal findings Category: Medical Plan: Results of his labs done last week reviewed and discussed with patient (2) Lumbar degenerative disc disease: Code(s): M51.36 - Other intervertebral disc degeneration, lumbar region Category: Medical Qualifiers: Disc-related pain type: discogenic back pain only Qualified Code(s): M51.360 - Other intervertebral disc degeneration, lumbar region with discogenic back pain only Plan: Lumbar spine x-rays done in July 2022 showed (+) degenerative disc changes with endplate sclerosis L5-S1 disc level but no visible acute fracture, dislocation or lytic process seen Patient has (+) Hx of L5-S1 disc herniation and underwent L5-S1 microdiscectomy by Dr. Miguel in February 2014 Reinforced activity and weight-lifting restrictions to avoid aggravating his low back pain Continue Tizanidine 4 mg Q HS as needed - Rx refilled He was also following up with pain management for his low back pain for a while but has not been to see them for the past year or so States that he has been doing well lately since he started exercising and working out regularly to strengthen his core (3) Cervical spondylosis: Code(s): M47.812 - Spondylosis without myelopathy or radiculopathy, cervical region Category: Medical Plan: Cervical spine x-rays done in 2020 revealed (+) multilevel cervical spondylosis Have again advised patient to continue with his neck stretching exercises regularly to help manage his neck symptoms (4) Shoulder pain, bilateral: Code(s): M25.511 - Pain in right shoulder; M25.512 - Pain in left shoulder Category: Medical Qualifiers: Chronicity: unspecified Qualified Code(s): M25.511 - Pain in right shoulder; M25.512 - Pain in left shoulder Plan: X-rays of both shoulders done in 2020 came back grossly normal except for (+) 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, 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 Repeat left shoulder x-rays done by orthopedics back in 07/2022 revealed (+) os acromiale, with no acute fractures or malalignment States that he has been to physical therapy (at least 8 sessions) and also had cortisone injections from orthopedics sometime last year and his shoulders continue to bother him a lot He has also failed cortisone injection back on 08/06/23 Left shoulder MRI done subsequently in January 2024 revealed no rotator cuff tear but (+) undersurface partial tear of the posterior superior labrum slightly extending into the biceps labral anchor. There is also a minimal tear at the posterior glenoid labral junction with tiny paralabral cyst and mild acromioclavicular osteoarthritis He was advised that he likely has SLAP tear of the left shoulder and to continue with strengthening exercises of the left shoulder as well as activities to avoid doing so as not to aggravate his shoulder - this should help him avoid surgery, which does not guarantee complete resolution of his symptoms Follow up with orthopedics as scheduled (5) Vitamin D deficiency: Code(s): E55.9 - Vitamin D deficiency, unspecified Category: Medical Plan: Continue Vitamin D3 2000 units - Rx refilled (6) Frequent loose stools: Code(s): R19.7 - Diarrhea, unspecified Category: Medical Qualifiers: Diarrhea type: unspecified type Qualified Code(s): R19.7 - Diarrhea, unspecified Plan: Unclear at this time what could be causing his recurrent GI symptoms Discussed possibilities that include food allergies and celiac disease Will send patient for some additional labs to check for celiac - if tests come out negative and symptoms persist, should consider referral to GI for further evaluation (7) Erectile dysfunction: Code(s): N52.9 - Male erectile dysfunction, unspecified Category: Medical Qualifiers: Erectile dysfunction type: unspecified Qualified Code(s): N52.9 - Male erectile dysfunction, unspecified Plan: Patient states that he has been experiencing some symptoms of ED for a while now We also checked his serum testosterone level recently but results are still pending at this time (8) Overweight (BMI 25.0-29.9): Code(s): E66.3 - Overweight Category: Medical Plan: Reinforced diet/exercise as tolerated/lose weight Plan Follow up in 6 months Orders: Orders Gliadin Ab Panel Today R19.7 - Diarrhea, unspecified Transglutaminase IgA Today R19.7 - Diarrhea, unspecified
== END 2024-12-14 14:30 | disposition home or self-care (01) ==
PROVIDERS: PCP Internal Medicine; Visit Provider Internal Medicine
DX: Z00.00 Encounter for general adult medical examination without abnormal findings (principal); M51.360 Other intervertebral disc degeneration, lumbar region with discogenic back pain only; M47.812 Spondylosis without myelopathy or radiculopathy, cervical region; M25.511 Pain in right shoulder; M25.512 Pain in left shoulder; E55.9 Vitamin D deficiency, unspecified; R19.7 Diarrhea, unspecified; N52.9 Male erectile dysfunction, unspecified; E66.3 Overweight

== ENCOUNTER → 2024-12-14 13:39 | Outpatient (BNVA) | payer BC, SELFPAY | PROVIDERS: PCP Internal Medicine; Visit Provider Internal Medicine | DX: Z00.00 Encounter for general adult medical examination without abnormal findings (principal); M51.360 Other intervertebral disc degeneration, lumbar region with discogenic back pain only; M47.812 Spondylosis without myelopathy or radiculopathy, cervical region; M25.511 Pain in right shoulder; M25.512 Pain in left shoulder; E55.9 Vitamin D deficiency, unspecified; R19.7 Diarrhea, unspecified; N52.9 Male erectile dysfunction, unspecified; E66.3 Overweight; Z68.28 Body mass index [BMI] 28.0-28.9, adult | CPT/HCPCS: 96127 ==

== ENCOUNTER 2024-12-16 14:57 | Outpatient (REF) | payer BC, SELFPAY ==
[2024-12-17 20:29] LABS: Gliadin Deamidated IgA Ab 1.5 U/mL; Gliadin Deamidated IgG Ab <1.0 U/mL; Transglutaminase IgA <1.0 U/mL
== END 2024-12-16 14:58 | disposition home or self-care (01) ==
LOC: HO.LAB 14:57
PROVIDERS: PCP Internal Medicine; Visit Provider Internal Medicine
DX: R19.7 Diarrhea, unspecified (principal)
CPT/HCPCS: 36415; 86258; 86364

== ENCOUNTER 2025-06-16 15:05 | Outpatient (AMB) | payer BC, SELFPAY ==
--- NOTE | 2025-06-16 15:08 | MHC.PC.OV ---
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: No Accompanied by: Self / Same As Patient Allergies amoxicillin (Augmentin) Allergy (Unknown, Verified 06/16/25 15:29) rash clavulanic acid (Augmentin) Allergy (Unknown, Verified 06/16/25 15:29) rash Medication List - Last Reconciled 06/16/25 by Karri Herndon MD cholecalciferol (vitamin D3) 50 mcg PO DAILY 90 days magnesium oxide 400 mg PO DAILY multivitamin (Multiple Vitamins tablet) 1 tab PO DAILY Tobacco use date assessed: 06/16/25 Dental Screening Dental Screen Date: 06/16/25 Did you have a dental visit in the last 12 months?: Yes Did you have a dental problem in the last 6 months where you did not have access to dental care?: No Was dental information given to patient?: Patient has dentist HPI 6mth f/u HPI Details Patient comes in today for his follow-up visit States that he feels okay He denies any headaches or dizziness Denies any chest pains, no SOB No nausea/vomiting, no abdominal pain No change in bowel habits noted - he continues to have on and off loose stools He would like to know how his labs done earlier this year in November 2024 came out, particularly the additional tests done to look into his frequent loose stools [facility] Medical History Vitamin D deficiency Cervical spondylosis Overweight (BMI 25.0-29.9) Bilateral hand pain Shoulder pain, bilateral Neck pain Surgical History Lumbar disc herniation Family History Father No problems noted. Mother Hypertension Maternal Grandmother Cancer Other Substance use disorder Social History Housing: House Alcohol intake: current Alcohol intake frequency: holidays/special occasions only Patient Tobacco Use Status: Never used Tobacco e-Cigarette/Vaping Use: Never Used Second Hand Smoke Exposure: No Substance Use Type: Marijuana service: No Current occupational status: employed Current occupation: [employer] Cognitive needs: No Hearing needs: No Vision needs: No Questionnaire PHQ-9 Over the last 2 weeks, how often have you been bothered by any of the following problems? 1. Little interest or pleasure in doing things: not at all 2. Feeling down, depressed, or hopeless: not at all 3. Trouble falling or staying asleep, or sleeping too much: not at all 4. Feeling tired or having little energy: more than half the days 5. Poor appetite or overeating: not at all 6. Feeling bad about yourself - or that you are a failure or have let yourself or your family down: not at all 7. Trouble concentrating on things, such as reading the newspaper or watching television: not at all 8. Moving or speaking so slowly that other people could have noticed. Or the opposite - being so fidgety or restless that you have been moving around a lot more than usual: not at all 9. Thoughts that you would be better off or of hurting yourself in some way: not at all Total score: 2 Depression Screening Interpretation: Negative Depression Screening Done: Yes 69851 - PHQ-9 Billing: Yes Source: Developed by Drs. Denis Hancock, Kath Jenkins, Maldonado Epstein and colleagues, with an educational doug from [employer]. Thrive Questionnaire Date Thrive assessed: 12/07/24 I am a: Patient What is your living situation today?: I have a steady place to live Within the past 12 months, did the food you bought not last and you didn't have the money to get more?: Sometimes True Within the past 12 months, did you worry whether your food would run out before you got money to buy more?: Sometimes True Do you have trouble paying for medicines?: No Do you have trouble getting transportation to medical appointments?: No Do you have trouble paying your heating and electricity bill?: No Do you have trouble taking care of your child, family member or friend?: I choose not to answer this question Do you have trouble with day-to-day activities such as bathing, preparing meals, shopping, managing finances, etc.?: No Are you currently unemployed and looking for a job?: No Are you interested in more education?: No Please select the resources that you would like help with: Food THRIVE Score: 2 AUDIT C Alcohol Use Questionnaire (AUDIT-C) 2. How many drinks containing alcohol do you have on a typical day when you are drinking?: 1 or 2 3. How often do you have six or more drinks on one occasion?: Never Total Score: 0 Score Reviewed/Action Taken: Yes DREA-7 AMB Questionnaire DREA-7 Date DREA - 7 assessed: 06/16/25 Feeling nervous, anxious, or on edge: 0 = Not at all Not being able to stop or control worryin = Not at all Worrying too much about different things: 0 = Not at all Trouble relaxin = Not at all Being so restless that it is hard to sit still: 0 = Not at all Becoming easily annoyed or irritable: 0 = Not at all Feeling afraid as if something awful might happen: 0 = Not at all Total DREA-7 score (0-4 normal; 5-9 mild; 10-14 moderate; 15-21 severe): 0 Source: Developed by Drs. Dneis Hancock, Kath Jenkins, Maldonado Epstein and colleagues, with an educational doug from [employer]. Review of Systems Const Denies chills, Denies fatigue, Denies fever(s) and Denies headache(s) ENT Denies dysphagia, Denies dizziness, Denies otalgia, Denies headache(s), Reports neck pain (on and off), Denies odynophagia and Denies sore throat Card Denies chest pain, Denies palpitations and Denies dyspnea Resp Denies chest congestion, Denies cough and Denies dyspnea GI Denies abdominal pain, Denies hematochezia, Denies constipation, Denies dysphagia, Denies heartburn, Reports loose stools (recurrent), Denies nausea, Denies odynophagia and Denies vomiting Denies difficulty urinating, Denies dysuria, Denies nocturia and Denies urinary frequency Musc Reports back pain (on and off, over the lower back) and Reports neck pain (on and off) Skin/Breast Denies rash Neuro Denies dizziness and Denies headache(s) Endo Denies fatigue and Denies palpitations Physical exam (Primary Care) Vital Signs: Last Vital Signs Pulse 66 06/16/25 15:10 BP 122/70 06/16/25 15:10 Pulse Ox 99 06/16/25 15:10 Oxygen Delivery Method Room Air 06/16/25 15:10 BMI result Body Mass Index 27.8 Tobacco/Smoking Status: Tobacco use Status Tobacco use date assessed 06/16/25 06/16/25 15:16 Patient Tobacco Use Status Never used Tobacco 06/16/25 15:16 e-Cigarette/Vaping Use Never Used 06/16/25 15:16 PHQ-9: PHQ-9 Score PHQ-9: Total score 2 06/16/25 15:30 Depression Screening Interpretation: Negative Thrive Assessment: Date of Thrive Assessment Date Thrive assessed 12/07/24 06/16/25 15:16 Const General: no acute distress and alert HENMT Ears: TM's normal bilaterally and EAC's normal Throat: Yes posterior oropharynx normal and Yes tonsils normal (no TP congestion) Neck Neck: No lymphadenopathy Thyroid: Thyroid normal Resp Auscultation: clear to auscultation bilaterally, no rales and no wheezes Cardio Rate: regular rate Rhythm: regular rhythm Heart sounds: no murmurs GI Palpation (GI): Soft to palpation and nontender Auscultation: normal bowel sounds General: Yes no CVA tenderness Back/Spine/Pelvis Back: no CVA tenderness Cervical Spine: Cervical spine tenderness (mild) Thoracic/Lumbar Spine: lumbar spinal tenderness (mild) Skin Rashes: no rashes Extrem General: Yes no clubbing, cyanosis or edema Results Reviewed Results Reviewed: Laboratory Tests 12/16/24 15:08 Tiss Transglutamin IgA <1.0 Anti-Gliadin IgG Ab <1.0 Gliadin (Deamidat) IgA 1.5 Coding Level of Care Code Est Pt Level 4 (30184) Diagnoses Degeneration of intervertebral disc of lumbar region with discogenic back pain M51.360 Disc-related pain type: discogenic back pain only Cervical spondylosis M47.812 Bilateral shoulder pain, unspecified chronicity M25.511; M25.512 Chronicity: unspecified Vitamin D deficiency E55.9 Diarrhea, unspecified type R19.7 Diarrhea type: unspecified type Erectile dysfunction, unspecified erectile dysfunction type N52.9 Erectile dysfunction type: unspecified Overweight (BMI 25.0-29.9) E66.3 Additional Codes PHQ-9 - 91310 - PHQ-9 Billing: Yes ([id number]) Assessment & Plan Assessment & Plan (1) Lumbar degenerative disc disease: Code(s): M51.36 - Other intervertebral disc degeneration, lumbar region Category: Medical Qualifiers: Disc-related pain type: discogenic back pain only Qualified Code(s): M51.360 - Other intervertebral disc degeneration, lumbar region with discogenic back pain only Plan: Lumbar spine x-rays done in July 2022 showed (+) degenerative disc changes with endplate sclerosis L5-S1 disc level but no visible acute fracture, dislocation or lytic process seen Patient has (+) Hx of L5-S1 disc herniation and underwent L5-S1 microdiscectomy by Dr. Miguel in February 2014 Reinforced activity and weight-lifting restrictions to avoid aggravating his low back pain Continue Tizanidine 4 mg Q HS as needed - Rx refilled He was also following up with pain management for his low back pain for a while but has not been to see them for the past year or so States that he has been doing well since he started exercising and working out regularly to strengthen his core late last year (2) Cervical spondylosis: Code(s): M47.812 - Spondylosis without myelopathy or radiculopathy, cervical region Category: Medical Plan: Cervical spine x-rays done in 2020 revealed (+) multilevel cervical spondylosis Have again advised patient to continue with his neck stretching exercises regularly to help manage his neck symptoms (3) Shoulder pain, bilateral: Code(s): M25.511 - Pain in right shoulder; M25.512 - Pain in left shoulder Category: Medical Qualifiers: Chronicity: unspecified Qualified Code(s): M25.511 - Pain in right shoulder; M25.512 - Pain in left shoulder Plan: X-rays of both shoulders done in 2020 came back grossly normal except for (+) 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, 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 Repeat left shoulder x-rays done by orthopedics back in 07/2022 revealed (+) os acromiale, with no acute fractures or malalignment States that he has been to physical therapy (at least 8 sessions) and also had cortisone injections from orthopedics sometime last year and his shoulders continue to bother him a lot He has also failed cortisone injection back on 08/06/23 Left shoulder MRI done subsequently in January 2024 revealed no rotator cuff tear but (+) undersurface partial tear of the posterior superior labrum slightly extending into the biceps labral anchor. There is also a minimal tear at the posterior glenoid labral junction with tiny paralabral cyst and mild acromioclavicular osteoarthritis He was advised that he likely has SLAP tear of the left shoulder and to continue with strengthening exercises of the left shoulder as well as activities to avoid doing so as not to aggravate his shoulder - this should help him avoid surgery, which does not guarantee complete resolution of his symptoms Follow up with orthopedics as scheduled (4) Vitamin D deficiency: Code(s): E55.9 - Vitamin D deficiency, unspecified Category: Medical Plan: Continue Vitamin D3 2000 units - Rx refilled (5) Frequent loose stools: Code(s): R19.7 - Diarrhea, unspecified Category: Medical Qualifiers: Diarrhea type: unspecified type Qualified Code(s): R19.7 - Diarrhea, unspecified Plan: Have advised patient that his additional labs done to look into potential causes of his frequent loose stools came back negative, so he does not appear to have celiac disease; he adds that he does not really drink milk and takes only Lactaid if he does, so milk allergy is also out of the question Have advised patient that at this time, it appears that he most likely has some component of irritable bowel syndrome and i he feels that his symptoms are getting worse, we can consider referring him to GI for further evaluation and management (6) Erectile dysfunction: Code(s): N52.9 - Male erectile dysfunction, unspecified Category: Medical Qualifiers: Erectile dysfunction type: unspecified Qualified Code(s): N52.9 - Male erectile dysfunction, unspecified Plan: Patient states that he has been experiencing some symptoms of ED for a while now His serum testosterone level done earlier this year came back normal Suspect anxiety as a likely contributor to this issue (7) Overweight (BMI 25.0-29.9): Code(s): E66.3 - Overweight Category: Medical Plan: Reinforced diet/exercise as tolerated/lose weight Plan To return as scheduled in 6 months for his next annual physical examination Patient is reminded to get his labs done before he comes back in 6 months for his next appointment Orders: Orders UA CC w/rflx Micro + Cult 12/12/25 R30.0 - Dysuria, Z00.00 - Encounter for general adult medical examination without abnormal findings Complete Blood Count Auto Diff 12/12/25 D64.9 - Anemia, unspecified, Z00.00 - Encounter for general adult medical examination without abnormal findings Comprehensive [place]. Panel Fast 12/12/25 E78.00 - Pure hypercholesterolemia, unspecified, Z00.00 - Encounter for general adult medical examination without abnormal findings Lipid Panel 12/12/25 E78.00 - Pure hypercholesterolemia, unspecified, Z00.00 - Encounter for general adult medical examination without abnormal findings TSH reflex Free T4 12/12/25 E78.00 - Pure hypercholesterolemia, unspecified, Z00.00 - Encounter for general adult medical examination without abnormal findings Vitamin D 25-OH Total 12/12/25 E55.9 - Vitamin D deficiency, unspecified, Z00.00 - Encounter for general adult medical examination without abnormal findings Medications: Refilled cholecalciferol (vitamin D3) 50 mcg PO DAILY 90 caps 3RF 90 days E55.9 - Vitamin D deficiency, unspecified
[2025-06-16 15:10] VITALS: BP 122/70; PULSE 66; O2SAT 99; BMI 27.8
--- OUTSIDE RECORDS SUMMARY | 2025-06-16 17:13 | XMS_ITS | Patient Health Record ---
Author Organization [facility] Address [address] [place] [address] Care Team Providers Care Scientific Director Name Role Phone Yanick FAN, [place] Primary Care Provider Florecita Guzman Unavailable [phone] Allergies Allergen (clinical drug ingredient) Drug/Non Drug [...] CAPSULE BY MOUTH DAILY FOR 90 DAYS Oral; Duration: 90 Days Active vitamin Active Social History [...] Insured Coverage Start Date Coverage End Date [facility] [address] [place] [address] [phone] [id number] Bobby Mena Self - patient is the insured Medical (General) History Medical History History ICD Code Hand Pain Cervical spondylosis Neck pain overweight Shoulder pain Vitamin D deficiency Onychomycosis Lumbar disc disease covid-19 Chicken pox Surgical History Surgery Date(Month/Year) lumbar disc herniation 2013
== END 2025-06-16 15:37 | disposition home or self-care (01) ==
LOC: HO.HMCH 15:06
PROVIDERS: PCP Internal Medicine; Visit Provider Internal Medicine
DX: M51.360 Other intervertebral disc degeneration, lumbar region with discogenic back pain only (principal); M47.812 Spondylosis without myelopathy or radiculopathy, cervical region; M25.511 Pain in right shoulder; M25.512 Pain in left shoulder; E55.9 Vitamin D deficiency, unspecified; R19.7 Diarrhea, unspecified; N52.9 Male erectile dysfunction, unspecified; E66.3 Overweight

== ENCOUNTER → 2025-06-16 15:05 | Outpatient (BNVA) | payer BC, SELFPAY | PROVIDERS: PCP Internal Medicine; Visit Provider Internal Medicine | DX: M51.360 Other intervertebral disc degeneration, lumbar region with discogenic back pain only (principal); M47.812 Spondylosis without myelopathy or radiculopathy, cervical region; M25.511 Pain in right shoulder; M25.512 Pain in left shoulder; E55.9 Vitamin D deficiency, unspecified; R19.7 Diarrhea, unspecified; N52.9 Male erectile dysfunction, unspecified; E66.3 Overweight | CPT/HCPCS: 96127 ==